=== PATIENT | female | born 1965 | race Caucasian/White ===

== ENCOUNTER 2017-08-07 18:49 | Emergency (ER) | payer OTHER, SELFPAY ==
[2017-08-07 18:50] VITALS: BP 146/80; PULSE 77; RESP 16; TEMP 36.7; O2SAT 100; BMI 21.6
--- NOTE | 2017-08-07 18:59 | RAD_ITS ---
STUDY: X-RAY - LUMBAR SPINE REASON FOR EXAM: Female, 51 years old. Fall. Low back pain. TECHNIQUE: 3 view(s) of the lumbar spine were obtained. COMPARISON: None FINDINGS: Normal lumbar lordosis. There is no substantial scoliosis. There is a normal alignment of the vertebrae. Normal vertebral bodies and endplates. There is mild intervertebral disc space narrowing at L3-4, L4-5 and to a lesser degree L5-S1. There is diffuse facet sclerosis. There are cholecystectomy clips. RAD/Lumbar Spine 2 or 3 Views IMPRESSION: Mild lumbar spondylosis. No acute pathology. Electronically Signed: Lito Damian MD at 19:23 EST , Service support ,
--- NOTE | 2017-08-07 19:00 | ED.VISSUMM ---
- ER Visit Summary Date of Service: 08/07/17 Chief Complaint: Back injury History of Present Illness: The patient is a 51 F with lumbar back injury. The patient was walking down her stairs. She states that they were wet from the rain and it had frozen. It was no ice. She states that she slipped and fell. She struck her low back and slid down the stairs. She did not hit her head. She denies loss of consciousness. Her only pain is at the area where she hit her back. It does not radiate down her legs. She denies any problems of bowel or bladder. She states she has never really had an injury like this before. The patient is otherwise healthy. Physical Examination: Afebrile, vitals unremarkable. Well-appearing female no acute distress. Head is normocephalic, atraumatic. Pupil's equal round reactive, extraocular muscles intact. Neck supple. Heart regular rate and rhythm. Lungs clear, chest nontender. Abdomen soft, nontender, nondistended. No pulsatile mass. Patient has paraspinal tenderness in the lumbar area, mild bony tenderness. There is a superficial abrasion over L2 and L3. Straight leg raise is negative bilaterally. 2+ symmetric lower extremity pulses. 2+ reflexes. No clonus. No weakness of dorsiflexion, plantar flexion, or extensor hallucis longus bilaterally. Test Results: X-ray shows no acute fracture Emergency Department Course and Treatment: The patient did have an abrasion with some mild tenderness over the L2-L3 area. She has normal lower extremity reflexes. She has normal pulses. She is a normal gait. I did obtain plain films which are unremarkable. The patient declined analgesics. She will continue anti-inflammatories at home. The patient will be discharged. Treatment Plan: [] Disposition: Discharge Impression: Lumbar contusion status post fall This note was generated with [employer] dictation software. It may contain incorrect words, spelling, and punctuation that were not noted in review of the chart prior to signing ED Disposition - Plan for ED Patient: Chief Complaint: Fall Instructions: ED Sprain Strain Lumbar Referrals: Melvin Aparicio MD [Primary Care Provider] -
--- NOTE | 2017-08-07 19:13 | NURSING ---
STILL NEEDS VERIFIED NO LW OR POA
--- NOTE | 2017-08-07 19:33 | ED.RN ---
THIS RN REVIEWED DISCHARGE INSTRUCTIONS WITH PT. PT TO FOLLOW UP WITH PCP NEEDED. PT VERBALIZES UNDERSTANDING AND IS AMBULATORY HOME BY SELF WITHOUT ASSISTANCE FROM STAFF.
== END 2017-08-07 19:34 | disposition home or self-care (01) ==
LOC: ED 19:17
PROVIDERS: Emergency Provider Emergency Medicine; Family Provider Internal Medicine; PCP Internal Medicine
DX: S30.0XXA Contusion of lower back and pelvis, initial encounter (principal); Z79.899 Other long term (current) drug therapy; W01.0XXA Fall on same level from slipping, tripping and stumbling without subsequent striking against object, initial encounter; Y93.01 Activity, walking, marching and hiking; Y92.008 Other place in unspecified non-institutional (private) residence as the place of occurrence of the external cause; Y99.8 Other external cause status
CPT/HCPCS: 72100; 99282

== ENCOUNTER → 2018-02-23 10:12 | Outpatient (CLI) | payer OTHER, SELFPAY ==
[2018-02-26 12:07] LABS: Almond <0.10 kU/L (Class 0); Apple <0.10 kU/L (Class 0); Banana 0.11 kU/L (Class 0/I); Barley, Whole Grain 0.11 kU/L (Class 0/I); Beef <0.10 kU/L (Class 0); Brazil Nut <0.10 kU/L (Class 0); Carrot <0.10 kU/L (Class 0); Cashew <0.10 kU/L (Class 0); Chicken <0.10 kU/L (Class 0); Clam <0.10 kU/L (Class 0); Codfish <0.10 kU/L (Class 0); Crab <0.10 kU/L (Class 0); Egg, White <0.10 kU/L (Class 0); Egg, Whole <0.10 kU/L (Class 0); Egg, Yolk <0.10 kU/L (Class 0); Garlic 0.11 kU/L (Class 0/I); Gluten <0.10 kU/L (Class 0); Hazelnut/Filbert <0.10 kU/L (Class 0); Lobster <0.10 kU/L (Class 0); Milk (Cow) <0.10 kU/L (Class 0); Oat <0.10 kU/L (Class 0); Onion 0.11 kU/L (Class 0/I); Orange <0.10 kU/L (Class 0); Pea <0.10 kU/L (Class 0); Pecan <0.10 kU/L (Class 0); Pork <0.10 kU/L (Class 0); Potato, White 0.11 kU/L (Class 0/I); SESAME SEED 0.14 kU/L (Class 0/I); Salmon <0.10 kU/L (Class 0); Shrimp <0.10 kU/L (Class 0); Soybean <0.10 kU/L (Class 0); Strawberry <0.10 kU/L (Class 0); Tomato 0.11 kU/L (Class 0/I); Tuna <0.10 kU/L (Class 0); Walnut, (Food) <0.10 kU/L (Class 0); Wheat 0.11 kU/L (Class 0/I); Yeast <0.10 kU/L (Class 0)
[2018-02-28 12:42] LABS: Turkey <0.10 kU/L (Class 0)
== END ==
PROVIDERS: Family Provider Internal Medicine; PCP Internal Medicine; Visit Provider Otolaryngology Otolaryngology/Facial Plastic Surgery
DX: T78.40XA Allergy, unspecified, initial encounter (principal)
CPT/HCPCS: 36415; 86003

== ENCOUNTER → 2019-04-04 | Outpatient (CLI) | payer OTHER, SELFPAY ==
[2019-04-04 13:10] LABS: Anion Gap 4 (5-15); BUN 21 mg/dL (7-18); BUN/Creat Ratio 30.5 RATIO (10-20); Chloride 105 mmol/L (98-107); Cholesterol 207 mg/dL (200); Creatinine, Serum 0.69 mg/dL (0.55-1.02); EST Glomerular Filtration Rate 95 mL/min (>60); Est Glom Filt Rate - Afr Amer 115 mL/min (>60); Glucose 78 mg/dL (74-106); High Density Lipoprotein 97 mg/dL; Potassium 3.8 mmol/L (3.5-5.1); Sodium Level 138 mmol/L (136-145); Thyroid Stim Hormone (TSH) 2.24 uIU/mL (0.358-3.74); Triglycerides 34 mg/dL; Very Low Density Lipoprotein 7 mg/dL (5-40)
== END | disposition home or self-care (01) ==
LOC: MFPLAB 10:38
PROVIDERS: Family Provider Family Medicine; PCP Family Medicine; Referring Provider Family Medicine; Visit Provider Family Medicine
DX: Z00.00 Encounter for general adult medical examination without abnormal findings (principal)
CPT/HCPCS: 36415; 80048; 80061; 82306; 84443

== ENCOUNTER → 2019-05-30 08:50 | Outpatient (CLI) | payer OTHER, SELFPAY ==
--- NOTE | 2019-05-30 08:58 | BD_ITS ---
STUDY: DUAL ENERGY X-RAY ABSORPTIOMETRY / DXA REASON FOR EXAM: Female, 53 years old. The patient is postmenopausal. No loss of height. TECHNIQUE: Bone Mineral Density (BMD) measurements of lumbar spine and bilateral hips were obtained. COMPARISON: None. FINDINGS: Lumbar Spine (L1-L4): g/cm2 (1.219) / T-score (0.3) / Z-score (0.9) Findings are suggestive of normal bone density with a low fracture risk. Left Femur Total: g/cm2 (0.834) / T-score (-1.4) / Z-score (-0.8) Left Femoral Neck: g/cm2 (0.791) / T-score (-1.8) / Z-score (-0.9) Right Femur Total: g/cm2 (0.858) / T-score (-1.2) / Z-score (-0.6) Right Femoral Neck: g/cm2 (0.763) / T-score (-2.0) / Z-score (-1.1) BD/Dexa Bone Density Study IMPRESSION: The patient is considered osteopenic as outlined below according to World Jose Organization (WHO) criteria with a moderate fracture risk. Reference Information: The T-score is the number of standard deviations above or below the standard which is normal for young adults at their peak bone mineral density. The World Health Organization (WHO) interprets the T-scores as follows: Above -1 Normal bone density Between -1 and -2.5 Osteopenia Equal to / or below -2.5 Osteoporosis As a practical clinical guideline, osteopenia may be graded as follows: Mild -1 through -1.5 Moderate -1.6 through -2.0 Severe -2.1 through -2.4 The Z-score is the number of standard deviations above or below age-matched controls. A Z-score of less than -1.5 would be considered abnormal. References: 1. NIH Osteoporosis and Related Bone Diseases http://www.osteo.org 2. International Society for Clinical Densitometry http://www.iscd.org 3. National Osteoporosis Foundation http://www.nof.org Electronically Signed: Alirio Boudreaux, at 12:44 EST , Service support ,
== END ==
PROVIDERS: Family Provider Family Medicine; PCP Family Medicine; Referring Provider Family Medicine; Visit Provider Family Medicine
DX: N95.9 Unspecified menopausal and perimenopausal disorder (principal)
CPT/HCPCS: 77080

== ENCOUNTER → 2019-08-31 17:06 | Outpatient (CLI) | payer OTHER, SELFPAY ==
--- NOTE | 2019-08-31 17:09 | RAD_ITS ---
STUDY: X-RAY - LEFT HAND, ATTENTION THUMB FINGER REASON FOR EXAM: Female, 53 years old. THUMB PAIN FOLLOWING HYPERTENSION TECHNIQUE: 3 view(s) of the finger were obtained. COMPARISON: None. FINDINGS: Normal metacarpal head. Normal metacarpophalangeal joint. Normal proximal phalanx. Normal middle phalanx. Normal distal phalanx. Normal proximal interphalangeal joint. Normal distal interphalangeal joint. RAD/Finger(s) Min 2 Views IMPRESSION: Normal x-ray examination of the finger. Electronically Signed: Dimitri Titus MD at 21:45 EST , Service support ,
== END ==
PROVIDERS: PCP Family Medicine; Referring Provider Family Medicine; Visit Provider Family Medicine
DX: M25.549 Pain in joints of unspecified hand (principal)
CPT/HCPCS: 73140

== ENCOUNTER → 2019-11-27 15:20 | Outpatient (CLI) | payer OTHER, SELFPAY ==
--- NOTE | 2019-11-27 15:25 | RAD_ITS ---
STUDY: X-RAY - CERVICAL SPINE REASON FOR EXAM: Female, 54 years old. Neck pain TECHNIQUE: 5 view(s) of the cervical spine were obtained. COMPARISON: None FINDINGS: Normal anterior atlantoaxial articulation. Normal odontoid process. There is anatomic alignment from C1 to C4. There is 3 mm of posterior subluxation of C5 on C4 likely chronic. C5-T1 align anatomically. There is bilateral foraminal narrowing at C5-6. Normal vertebral bodies and endplates. Mild disc space narrowing in the mid C-spine. Bilateral foraminal narrowing noted C4-5 and C5-6. The soft tissue structures are unremarkable. RAD/Cerv Spine 4 or 5 Views IMPRESSION: Multilevel degenerative changes, no acute findings Electronically Signed: Justus Doyle MD at 15:41 EDT , Service support ,
== END ==
PROVIDERS: PCP Family Medicine; Referring Provider Family Medicine; Visit Provider Family Medicine
DX: M54.2 Cervicalgia (principal)
CPT/HCPCS: 72050

== ENCOUNTER 2020-03-20 15:30 | Outpatient (RCR) | payer OTHER, SELFPAY ==
--- NOTE | 2019-12-01 09:57 | HP.PTEVAL ---
Patient's Visit Information JOSEF MACHADO is a 54 year old F referred to Physical Therapy by Dr. Jimmie Palacios MD with a diagnosis of NECK PAIN. Date of Evaluation: 12/01/19 Physical Therapist: Libby Vera PT, Cert MDT - Visit Plan Frequency: 2-3x /Week Duration: 4-6 Weeks Plan: POSTURE CORRECTION/STRENGTHENING, INSTRUCTION IN APPROPRIATE BODY MECHANICS AND ACTIVITY MODIFICATIONS. ERIBERTO UE ROM, STRETCHING AND STRENGTHENING. HEP INSTRUCTION. CONSIDER: REP RET IN SITTING. REP RET IN LYING. SCAP SQUEEZES. DEEP NECK FLEXOR LIFT. PRONE W'S. UE WALL SLIDES. PRONE ROWS. UE TBAND WALL WALKS. ANTERIOR/MIDDLE SCALENE STRETCH. UPPER TRAP STRETCH. LEVATOR SCAPULAE STRETCH. CHEST/PEC MAJOR AND MINOR STRETCH - Subjective Diagnosis: NECK PAIN. 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 HAS A STANDING DESK NOW AT WORK BUT CURRENTLY WORKING DUE TO THE VIRUS. Disability: NO. Present symptoms: ERIBERTO NECK PAIN, PAIN BETWEEN SHOULDER BLADES, A LOT OF TIGHTNESS. RIGHT UPPER ARM CRAMPING. SOMETIMES WAKES UP WITH RIGHT HAND NUMB. Present since: ABOUT 10 YEARS AGO BUT OFF AND ON IN SEVERITY AT LEAST. Pain Scale: Worst - 5/10 Least - 0/10. Currently: 10: WORSENING. LOCKS DOWN NOW. HAS BEEN LOCKED FOR ABOUT A YEAR. Commenced as a result of: NO APPARENT REASON. Symptoms at onset: NECK STIFFNESS. Worse: STRESS, WORKING ON COMPUTER, TYPING, GARDENING, MORNING, REACHING, BENDING AND LOOKING DOWN. Better: REST, ICE, HEAT, IBUPROFEN, MINDFUL OF POSTURE. Disturbed sleep: YES. Previous history/Previous treatment: NO NECK SURGERY, NO YASMINE'S. DOES HAVE A HISTORY OR CHIROPRACTIC NECK ADJUSTMENTS FOR 4-5 YEARS. PT ABOUT 10 YEARS AGO BECAUSE ALL LOCKED UP. MASSAGE THERAPY INTERMITTENTLY. ACUPUNCTURE. This episode: MOBIC. STILL SEEING THE CHIROPRACTOR. HELPS BUT DOESN'T GET RID OF THE TRIGGER POINTS AND TIGHTNESS. IT HELPS WITH ROM. BY THE NEXT DAY ALMOST BACK TO SQUARE ONE. Dizziness: NO. Tinnitis: NO. Nausea: NO. Shortness of Breath: NO. Difficulty Swollowing: NO. Gait: NORMAL. Accidents: NO. Unexplained weight loss: NO. Imaging: RECENT NECK X-RAY - FINDINGS: Normal anterior atlantoaxial articulation. Normal odontoid process. There is anatomic alignment from C1 to C4. There is 3 mm of posterior. subluxation of C5 on C4 likely chronic. C5-T1 align anatomically. There is bilateral foraminal narrowing at C5-6. Normal vertebral bodies. and endplates. Mild disc space narrowing in the mid C-spine. Bilateral. foraminal narrowing noted C4-5 and C5-6. The soft tissue structures are unremarkable. RAD/Cerv Spine 4 or 5 Views. IMPRESSION: Multilevel degenerative changes, no acute findings. PMH/Recent major surgery: UNREMARKABLE - Objective Sitting Posture/Standing Posture: FAIR BUT TENDS TO HYPER EXTEND LUMBAR SPINE. Active Correction of posture: WORSE. Other Observations: INDEP GAIT AND TRANSFERS. 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 ERIBERTO UE STRENGTH 5/5 WITH MMT'ING. Sensory deficit: ERIBERTO UE LIGHT TOUCH SENSATION APPEARS INTACT AND SYMMETRICAL. ROM deficit: ERIBERTO UE'S WFL. Reflexes: 2/3 ERIBERTO UE'S. Dural Signs: NEGATIVE ERIBERTO UE'S. Cervical Mvmt Loss: Flex: MIN. Pro: NIL. Ext: MILD TO MO. Ret: MOD. RSB: MOD. LSB: MOD. R Rot: MILD. L Rot: MILD. Postural strength: FAIR. Palpation: NO ACUTE TENDERNESS IN UPPER THORACIC OR NECK REGIONS BUT MUSCULAR TIGHTNESS IS FELT. TREATMENT: NEUROMUSCULAR REEDUCATION - RETRAINING OF MVMT AND POSTURE FOR SITTING, LYING AND STANDING ACTIVITIES. OTHER: SEATED CERVICAL DISTRACTION TESTING RESULTS IN DECREASED C/O PAIN/TIGHTNESS. - Goals Goal 1:: DECREASE C/O NECK AND UE SX'S. Goal Time Frame: 4-6 Weeks Goal 2:: IMPROVE PERSONAL CARE, LIFTING, READING, SLEEP, WORK, DRIVING AND RECREATIONAL FUNCTION Goal Time Frame: 4-6 Weeks Goal 3:: INSTRUCT IN PROPHYLAXIS Goal Time Frame: 4-6 Weeks - Rehabilitation Potential Rehabilitation Potential: Fair - Anticipated Interventions Patient/Client Instruction: Educate patient on: Condition, Plan of Care, Risk Factors, Benefits of Fitness Program For the Purpose of:: To improve self management Therapeutic Exercise to Include: Strength training, Endurance training, Body mechanics, Postural training, Flexibilty training, Neuromotor development, Active ROM, Scapular Strength/Stabilization For the Purpose of:: To decrease pain, To increase ROM, To improve muscle performance and motor function, To increase tolerance to activity/condition/position, To improve ability of physical actions for home/community/work/leisure TENS: Yes IF ES: Yes Cryotherapy (ice pack, ice massage): Yes Thermo therapy (hot pack): Yes Ultrasound (thermal/non thermal): Yes For the Purpose of:: To decrease pain, To increase ROM, To improve nutrient delivery to tissue Thank you for the opportunity to evaluate your patient. For Medicare and Medicare HMO plans, please review the plan of care and approve it. It will need to be FAXED BACK to us at [phone] for Medicare purposes. For Medicare only, by signing this I certify the plan of care. Please let me know if there are questions or concerns regarding this plan of care. Physician Signature: Date:
--- NOTE | 2020-04-29 17:32 | HP.PTDCNRP_ITS ---
JOSEF MACHADO was seen in my office for initial evaluation on 12/01/19. The following Plan of Care was established for this patient: Initial Frequency: 2-3x /Week Initial Duration: 4-6 Weeks Patient/Client Instruction: Educate patient on: Condition, Plan of Care, Risk Factors, Benefits of Fitness Program For the Purpose of:: To improve self management Therapeutic Exercise to Include: Strength training, Endurance training, Body mechanics, Postural training, Flexibilty training, Neuromotor development, Active ROM, Scapular Strength/Stabilization For the Purpose of:: To decrease pain, To increase ROM, To improve muscle pe rformance and motor function, To increase tolerance to activity/condition/position, To improve ability of physical actions for home/community/work/leisure TENS: Yes IF ES: Yes Cryotherapy (ice pack, ice massage): Yes Thermo therapy (hot pack): Yes Ultrasound (thermal/non thermal): Yes For the Purpose of:: To decrease pain, To increase ROM, To improve nutrient delivery to tissue This patient was last seen in our office 03/20/20. Pertinent comments regarding their Physical therapy will appear below: This patient has not returned to Physical Therapy and is appropriate to return to MD for further follow-up as needed. At this point I will be discontinuing this patient from physical therapy. I would be happy to see this patient again in the future if found appropriate by the physician. Thank you! Libby Vera, PT, Cert MDT
== END 2020-03-20 19:00 | disposition home or self-care (01) ==
LOC: PT 15:30
PROVIDERS: PCP Family Medicine; Referring Provider Family Medicine; Visit Provider Family Medicine
DX: M54.2 Cervicalgia (principal); M25.511 Pain in right shoulder
CPT/HCPCS: 97012; 97014; 97035; 97110; 97112; 97116; 97140; 97162; 97530; G0283

== ENCOUNTER → 2020-05-14 16:45 | Outpatient (CLI) | payer OTHER, SELFPAY | PROVIDERS: PCP Family Medicine; Referring Provider Family Medicine; Visit Provider Family Medicine | DX: Z20.828 Contact with and (suspected) exposure to other viral communicable diseases (principal) | CPT/HCPCS: 87635; U0003 ==

== ENCOUNTER 2020-09-10 15:09 | Outpatient (RCR) | payer OTHER, SELFPAY ==
[2020-09-10] MEDS: COVID-19 VACC, MRNA(PFIZER)/PF 30 MCG/0.3 ML SYRINGE IM (12:41)
[2020-10-01] MEDS: COVID-19 VACC, MRNA(PFIZER)/PF 30 MCG/0.3 ML SYRINGE IM (12:33)
== END 2020-12-03 23:59 ==
LOC: IMMUN 15:09
PROVIDERS: PCP Family Medicine; Visit Provider Family Medicine
DX: Z23 Encounter for immunization (principal)
CPT/HCPCS: 0001A; 0002A; 91300

== ENCOUNTER 2021-09-04 15:12 | Outpatient (CLI) | payer OTHER, SELFPAY ==
[2021-09-04 18:27] LABS: ALB/GLOB Ratio 1.3 RATIO (0.9-2.4); AST(SGOT) 23 U/L (15-37); Alanine Aminotransfer ALT/SGPT 26 U/L (13-56); Albumin, Serum 4.1 g/dL (3.2-5.0); Alkaline Phosphatase 110 U/L (45-117); Anion Gap 4 (5-15); BUN 17 mg/dL (7-18); Calcium,Total 8.7 mg/dL (8.5-10.1); Chloride 99 mmol/L (98-107); Creatinine, Serum 0.89 mg/dL (0.55-1.02); EST Glomerular Filtration Rate 70 mL/min (>60); Est Glom Filt Rate - Afr Amer 84 mL/min (>60); Globulin 3.2 g/dL (2.2-4.2); Glucose 96 mg/dL (74-106); Potassium 4.1 mmol/L (3.5-5.1); Protein, Total 7.3 g/dL (6.4-8.2); Sodium Level 134 mmol/L (136-145)
== END 2021-09-04 23:59 | disposition home or self-care (01) ==
PROVIDERS: PCP Family Medicine; Referring Provider Family Medicine; Visit Provider Family Medicine
DX: Z00.00 Encounter for general adult medical examination without abnormal findings (principal)
CPT/HCPCS: 36415; 80053

== ENCOUNTER 2021-09-11 16:00 | Outpatient (RCR) | payer OTHER, SELFPAY ==
--- NOTE | 2021-07-04 10:59 | HP.PTEVAL_ITS ---
Patient's Visit Information JOSEF MACHADO is a 55 year old F referred to Physical Therapy by Dr. Jimmie Palacios MD with a diagnosis of BILATERAL SHOULDER PAIN. Date of Evaluation: 07/04/21 Physical Therapist: Molina Laird PT, Cert MDT, OCS - Visit Plan Frequency: 2x /Week Duration: 4 Weeks Plan: PT INTERVENTIONS WITH POSTURAL EX'S ,RTC/SCAPULAR STRENGTHENING ,POSTURAL ED AND MODALTIES - Subjective This 55 y/o female presents to physical therapy with shoulder pain bilateral pain. Patient has had shoulder pain several months related to posture and weakness. Seen DR recommended PT. No diagnostics. Location of pain global shoulders refers to lateral deltoid to elbow. Aggravating posture ,lifting and OH activities. Alleviating factors trying to all stretches. Patient sleeping good. Denies paresthesia/ tingling. Patient symptoms affects ADL's and housework tasks along with job demands at [employer]. Patient symptoms described as sharp , dull ache. Patients symptoms affects QOL. 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 SOCIAL: - Pain Bilateral Shoulder Pain Intensity (Out of 10): 3 Pain Intensity Range: 10 Comment: RIGHT > LEFT - Objective POSTURE: rounded shoulders head forward. PALAPTION: unremarkable. NEURO: denies paresthesia/tingling. PALAPTION: tender AC right ,levator scapular. AROM SHOULDERS: flexion/abduction 170 degrees, ER > 90,IR T11. MMT: infraspinatous 4-/5 pain right, supraspinatous 4-/5 pain right, subscapularis 4/5,deltoid 3+/5 right ,left 4-/5 pain right. middle traps 3+/5 - Special Tests C/S Radiculapathy - Left Upper limb tension test: Negative C/S Radiculapathy - Right Upper limb tension test: Negative C/S Radiculapathy - Right Spurlings: Negative Sharp Alannah: Negative Vertebral Artery Test: Negative Alar Ligament Test: Negative R Shoulder External Rotation Lag Test - RC Tear: Negative R Shoulder Supine Impingement Test - RC Tear: Negative R Shoulder Empty Can - SS: Positive R Shoulder Belly Press - SupScap: Negative R Shoulder Neer - Impingement: Positive R Shoulder Orlando Ricardo - Impingement: Positive L Shoulder External Rotation Lag Test - RC Tear: Negative L Shoulder Supine Impingement Test - RC Tear: Negative L Shoulder Empty Can - SS: Positive L Shoulder Belly Press - SupScap: Negative L Shoulder Neer - Impingement: Positive L Shoulder Orlando Ricardo - Impingement: Positive - Balance/Special Test Scores Quick DASH Score: 38.6350 - Goals Goal 1:: Patient to be I with HEP for shoulder pain Goal Time Frame: 4-6 Weeks Goal 2:: Patient to improve posture for job demands 90m % of the time Goal Time Frame: 4-6 Weeks Goal 3:: Patient demonstrate 50 % improvement with decrease symptoms to improve function with job and housework tasks Goal Time Frame: 4-6 Weeks Goal 4:: Patient to improve strength of RTC and deltoid to 4/5 to improve activities with job and home with less pain Goal Time Frame: 4-6 Weeks Goal 5:: Patient to improve quick dash by 5 points to improve QOL and function Goal Time Frame: 4-6 Weeks - Rehabilitation Potential Physical Therapy Diagnosis: This patient has shoulder pain with weakness of RTC and postural muscle worse on right with pain along with instability thus benefit from skilled PT . Rehabilitation Potential: Poor - Anticipated Interventions Patient/Client Instruction: Educate patient on: Condition, Plan of Care For the Purpose of:: To decrease pain, To increase ROM, To improve muscle performance and motor function, To improve ability to perform ADL's, To increase tolerance to activity/condition/position, To improve ability of physical actions for home/community/work/leisure, To improve health of tissue, To decrease soft tissue restriction, To increase flexibility/ROM Therapeutic Exercise to Include: Strength training, Postural training, Scapular Strength/Stabilization Comment: RTC For the Purpose of:: To decrease pain, To increase ROM, To improve muscle performance and motor function, To improve ability to perform ADL's, To improve performance and independence with ADL's, To improve ability of physical actions for home/community/work/leisure, To reduce risk of recurrence, To prevent re- injury TENS: Yes IF ES: Yes Cryotherapy (ice pack, ice massage): Yes Thermo therapy (hot pack): Yes Ultrasound (thermal/non thermal): Yes For the Purpose of:: To decrease pain, To increase ROM, To improve nutrient delivery to tissue, To increase oxygenation perfusion, To improve health of tissue, To decrease soft tissue restriction Thank you for the opportunity to evaluate your patient. For Medicare and Medicare HMO plans, please review the plan of care and approve it. It will need to be FAXED BACK to us at [phone] for Medicare purposes. For Medicare only, by signing this I certify the plan of care. Please let me know if there are questions or concerns regarding this plan of care. Physician Signature: Date:
--- NOTE | 2021-12-24 13:49 | HP.PTDCNRP_ITS ---
JOSEF MACHADO was seen in my office for initial evaluation on 07/04/21. The following Plan of Care was established for this patient: Initial Frequency: 2x /Week Initial Duration: 4 Weeks Patient/Client Instruction: Educate patient on: Condition, Plan of Care For the Purpose of:: To decrease pain, To increase ROM, To improve muscle performance and motor function, To improve ability to perform ADL's, To increase tolerance to activity/condition/position, To improve ability of physical actions for home/community/work/leisure, To improve health of tissue, To decrease soft tissue restriction, To increase flexibility/ROM Therapeutic Exercise to Include: Strength training, Postural training, Scapular Strength/Stabilization For the Purpose of:: To decrease pain, To increase ROM, To improve muscle performance and motor function, To improve ability to perform ADL's, To improve performance and independence with ADL's, To improve ability of physical actions for home/community/work/leisure, To reduce risk of recurrence, To prevent re- injury TENS: Yes IF ES: Yes Cryotherapy (ice pack, ice massage): Yes Thermo therapy (hot pack): Yes Ultrasound (thermal/non thermal): Yes For the Purpose of:: To decrease pain, To increase ROM, To improve nutrient delivery to tissue, To increase oxygenation perfusion, To improve health of tissue, To decrease soft tissue restriction This patient was last seen in our office . Pertinent comments regarding their Physical therapy will appear below: Patient seen for bilateral shoulder pain and elbow pain for strengthening, postural ex's and modalities thus d/c to HEP At this point I will be discontinuing this patient from physical therapy. I would be happy to see this patient again in the future if found appropriate by the physician. Thank you! Molina Laird, PT, Cert MDT, OCS Balance/Gait/Functional tests - Balance/Special Test Scores Quick DASH Score: 4.5450
== END 2021-09-11 19:00 | disposition home or self-care (01) ==
LOC: PT 16:00
PROVIDERS: PCP Family Medicine; Referring Provider Family Medicine; Visit Provider Family Medicine
DX: M25.511 Pain in right shoulder (principal); M25.512 Pain in left shoulder
CPT/HCPCS: 97014; 97110; 97162; 97530; G0283

== ENCOUNTER 2021-09-16 17:49 | Outpatient (CLI) | payer OTHER, SELFPAY ==
--- NOTE | 2021-09-16 18:20 | MRI_ITS ---
STUDY: MRI RIGHT WRIST WITHOUT CONTRAST REASON FOR EXAM: Pain at the dorsal ulnar aspect of the right wrist after right wrist sprain 06/10/2021. TECHNIQUE: Standardized fat and water weighted pulse sequences were obtained in all 3 orthogonal planes. COMPARISON: None. FINDINGS: Normal visualized distal radius and ulna. There is a small effusion of the distal radioulnar joint (inversion recovery axial images 21-23). There is a very small partial tear of the proximal surface of the triangular fibrocartilage (gradient coronal images 19-21; inversion recovery coronal image 9). There are small intraosseous cysts in the capitate (gradient coronal image 20). Otherwise, unremarkable carpal bones. Normal radiocarpal, intercarpal and midcarpal articulations. Normal pisotriquetral articulation. Normal visualized interosseous scapholunate ligament. Normal extensor tendons. Normal flexor tendons. Normal carpal tunnel with a normal median nerve. Normal carpometacarpal articulation of the thumb. Normal second through fifth carpometacarpal articulations. Normal visualized metacarpal bones. There is no demonstrated soft tissue abnormality. MRI/Upper Ext Joint Only(Routine) IMPRESSION: Very small partial tear of the triangular fibrocartilage. Small effusion of the distal radioulnar joint. Electronically Signed: Erick Nion MD at 10:13 EDT ,
== END 2021-09-16 23:59 | disposition home or self-care (01) ==
LOC: MRI 17:50
PROVIDERS: PCP Family Medicine; Visit Provider Family Medicine
DX: S63.501A Unspecified sprain of right wrist, initial encounter (principal)
CPT/HCPCS: 73221

== ENCOUNTER → 2022-05-08 | Outpatient (CLI) | payer OTHER, SELFPAY ==
--- NOTE | 2022-05-08 16:29 | RAD_ITS ---
HISTORY: Hematuria. TECHNIQUE: XR Abdomen W/ Decub and/or Erect Views. COMPARISON: None. FINDINGS: BOWEL GAS PATTERN: Gaseous distention of bowel in the left upper quadrant. Moderate stool throughout the colon. FREE AIR: None seen on upright view. CALCIFICATIONS: Small nonspecific calcifications in the upper abdomen again seen. Pelvic phlebolith also noted. BONES: Unremarkable. SOFT TISSUES: Lung bases clear. RAD/Abd Inc Decub and/or Erect IMPRESSION: Nonspecific bowel gas pattern. Gaseous distention of bowel in the left upper quadrant with moderate stool throughout the colon. Electronically Signed: Aranza Kelly MD at 8:17 EST ,
== END | disposition home or self-care (01) ==
LOC: MTRAD 16:28
PROVIDERS: PCP Family Medicine; Referring Provider Family Medicine; Visit Provider Family Medicine
DX: R31.9 Hematuria, unspecified (principal)
CPT/HCPCS: 74019; 87086; 87088

== ENCOUNTER 2022-08-24 13:00 | Outpatient (RCR) | payer OTHER, SELFPAY ==
--- NOTE | 2022-07-21 12:56 | HP.PTEVAL ---
Patient's Visit Information JOSEF MACHADO is a 56 year old F referred to Physical Therapy by Dr. Jimmie Palacios MD with a diagnosis of LBP/R HIP PAIN. 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 PLEASE PROVIDE WRITTEN HEP. POSTURE CORRECTION/STRENGTHENING, INSTRUCTION IN APPROPRIATE BODY MECHANICS AND ACTIVITY MODIFICATIONS. DLS STARTING WITH A NEUTRAL SPINE PROGRESSING ROM TOLERATED. ERIBERTO LE ROM, STRETCHING AND STRENGTHENING. HEP INSTRUCTION. 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 SOMETIMES FIELD WORK INCLUDING BENDING, SQUATTING, PUSHING AND PULLING BUT NOT HEAVY LIFTING. Present symptoms: DEEP FRONT HIP PAIN. ERIBERTO LOW BACK PAIN. ACTUALLY REPORTS TIGHTNESS IN WHOLE TRUCK AREA AND UP BACK INTO NECK AND SHLDS. Present since: CHRONIC BUT HAS PROGRESSIVELY WORSENED OVER ABOUT A YEAR AGO. Pain Scale: WORST 4, LEAST 0/10. Currently: 0/10. Is it getting better, worse or staying the same: UNCHANGING. Commenced as a result of: IBS BUT ALSO REPETATIVE UP AND DOWN IN DECEMBER SEEMED TO CREATE TRIGGER POINTS IN FRONT OF R HIP. Worse: WALKING > 3 MILES, WALKING ON UNEVEN GROUND, HIKING UP AND DOWN HILLS, HEAVY GARDENING, MOVING MULCH, DIGGING,. Better: RUBBER BALL TRIGGER POINT RELEASE, STRETCHING/YOGA, HEAT. Disturbed sleep: YES - AT TIMES. Previous history/Previous treatment: MASSAGE. CHIROPRACTIC 1-2 TIMES A MONTH - ONGOING. ACCUNCTURE. NO SPINE SX. NO HIP SURGERY. NO HIP OR BACK INJECTIONS. NO ORTHO CONSULTS FOR HIPS. NO JEWEL FLAT SURFACER CONSULTS. Treatment this episode: NONE. Coughing/sneezing/straining: NEGATIVE. Gait: TIME AND DISTANCE LIMITED DUE TO BACK/HIP PAIN. Bowel or Bladder Dysfunction: NO. Accidents: NO. Unexplained weight loss: NO. Imaging: NONE RECENT. PMH/Recent major surgery: FOOT PROBLEMS, IBS, ANXIETY - ON MEDICATION. R WRIST STRAIN - WEARING R WRIST BRACE TODAY. - Objective Sitting/Standing Posture: MILD FH AND RSH'S. MILD REDUCED LUMBAR LORDOSIS AND NO RELEVANT LATERAL SHIFT. Active Correction of posture: BETTER. Other Observations: INDEP GAIT AND TRANSFERS WITH NO GROSS DEVIATIONS NOTED. Sensory deficit: ERIBERTO LE LIGHT TOUCH SENSATION GROSSLY INTACT AND SYMMETRICAL. ROM deficit: ERIBERTO LE'S WFL WITH MILD R HIP IR AND ER TIGHTNESS COMPARED TO LEFT. Motor deficit: ERIBERTO LE'S 5/5 WITH MMT'ING. Dural Signs: NEGATIVE ERIBERTO LE'S. Lumbar mvmt loss: flex - NIL. ext - MIN. R SG - MIN TO MOD. L SG - MIN TO MOD. Core strength: FAIR. Palpation: NO ACUTE LOWER THORACIC, PELVIC OR HIP TENDERNESS WITH MEDIUM TO LIGHT PALPATION. TREATMENT: NEUROMUSCULAR REEDUCATION - RETRAINING OF MVMT AND POSTURE FOR SITTING, LYING AND STANDING ACTIVITIES. - Balance/Special Test Scores Oswestry Low Back Score: 5 - Goals Goal 1:: DECREASE C/O LOW BACK AND RIGHT HIP PAIN. Goal Time Frame: 4-6 Weeks Goal 2:: IMPROVE SITTING, WORK AND RECREATIONAL FUNCTION. Goal Time Frame: 4-6 Weeks Goal 3:: INSTRUCT IN PROPHYLAXIS Goal Time Frame: 4-6 Weeks - Anticipated Interventions Patient/Client Instruction: Educate patient on: Condition, Plan of Care, Risk Factors For the Purpose of:: To improve self management Therapeutic Exercise to Include: Strength training, Body mechanics, Postural training, Flexibilty training, Neuromotor development, Dynamic Lumbar Stabilization For the Purpose of:: To decrease pain, To increase ROM, To improve muscle performance and motor function, To increase tolerance to activity/condition/position, To improve ability of physical actions for home/community/work/leisure Thank you for the opportunity to evaluate your patient. For Medicare and Medicare HMO plans, please review the plan of care and approve it. It will need to be FAXED BACK to us at [phone] for Medicare purposes. For Medicare only, by signing this I certify the plan of care. Please let me know if there are questions or concerns regarding this plan of care. Physician Signature: Date:
--- NOTE | 2022-08-24 13:24 | HP.PTDCSUM_ITS ---
It has been my pleasure to treat JOSEF MACHADO referred by Dr. Jimmie Palacios MD, with the diagnosis of LBP/R HIP PAIN for a total of 8 visit(s). Discharge Date: 08/24/22 Please see the following information for a summary of their discharge status. Subjective: PATIENT REPORTS HER CORE IS STRONGER SO SHE FEELS LESS INSTABILITY AND LESS PAIN. I CAN BE MORE ACTIVE. SHE REPORTS SHE HAS BEEN ABLE TO MODIFY HER WORK STATION TO TOLERATE WORK BETTER. SHE STATES SHE STILL HAS TIGHTNESS IN HER TRUNK/HIPS. MASSAGE THROUGH CHIROPRACTOR LAST WEEK BUT REALLY WASN'T WHAT SHE HOPED TO GET. LOW BACK Pain Intensity (Out of 10): 0 ERIBERTO HIP PAIN Pain Intensity (Out of 10): 0 % Improvement: 65 Objective/Function: Communicates good understanding of home exercise program instructions. Compliant with home exercises on nearly daily basis. Goal 1:: DECREASE C/O LOW BACK AND RIGHT HIP PAIN. Goal Progress: Goal Met Goal 2:: IMPROVE SITTING, WORK AND RECREATIONAL FUNCTION. Goal Progress: Goal Met Goal 3:: INSTRUCT IN PROPHYLAXIS Goal Progress: Goal Met Plan: PATIENT WAS SEEN TODAY FOR RE-ASSESSMENT OF PROGRESS TOWARD THE SET PT GOALS AND THE NEED FOR FURTHER PHYSICAL THERAPY VS READINESS FOR DISCHARGE. PATIENT IS APPROPRIATE FOR DISCHARGE TO [facility]. REVIEWED HEP AND REINFORCED IMPORTANCE OF STRENGTH/STABILITY EX'S. DISCUSSED DRY NEEDLING AND PATIENT IS FAMILAR WITH EPISODE OF CARE FOR DRY NEEDLING FOR SHLD IN THE PAST. ALSO DISCUSSED POSSIBLE BENEFITS OF HOME TENS UNIT - PATIENT IS FAMILAR WITH E-STIM FROM CHIROPRACTIC TREATMENTS. PATIENT IS AGREEABLE TO DISCHARGE. UPON EXAM TODAY: Lumbar mvmt loss: flex - NIL. ext - MIN. R SG - MIN TO MOD. L SG - MIN TO MOD. PATIENT DENIES INCREASED PAIN WITH LUMBAR ROM TESTING ALL PLANES BUT DOES REPORT TIGHTNESS. ALTHOUGH PATIENT CONTINUES TO HAVE DECREASED LUMBAR ROM ALL GOALS APPEAR TO HAVE SHAILESH MET. If there are questions or concerns regarding this patient's physical therapy, please feel free to call me at [phone]. Thank you for the referral of this patient. Sincerely, Libby Vera, PT, Cert MDT Balance/Gait/Functional tests - Balance/Special Test Scores Oswestry Low Back Score: 4
== END 2022-08-24 19:00 | disposition home or self-care (01) ==
LOC: PT 13:00
PROVIDERS: PCP Family Medicine; Referring Provider Family Medicine; Visit Provider Family Medicine
DX: M54.50 Low back pain, unspecified (principal); M25.551 Pain in right hip
CPT/HCPCS: 97110; 97112; 97162; 97164; 97530

== ENCOUNTER → 2023-06-14 | Outpatient (CLI) | payer OTHER, SELFPAY ==
[2023-06-14 15:20] LABS: Absolute Lymphocyte Count 1.64 X10^3/uL (0.83-4.51); Absolute Neutrophil Count 3.7 X10^3/uL (2.0-7.7); Basophil# 0.02 X10^3/uL; Basophil% 0.3 % (0-1); Eosinophil# 0.02 X10^3/uL; Eosinophils% 0.3 % (0-5); Hematocrit 36.1 % (37-47); Lymphocyte # 1.64 X10^3/ul (0.83-4.51); Mean Corp Hgb Conc 33.2 g/dL (32-36); Mean Corpuscular Hgb 32.2 pg (27.0-32.0); Mean Corpuscular Volume 96.8 fL (81-99); Monocyte# 0.49 X10^3/uL; Monocyte% 8.4 % (0-10); NRBC Flagged by Analyzer 0 % (0-5); Neutrophil # 3.67 X10^3/uL (2.7-7.7); Neutrophil % 62.7 % (47-70); Platelet Count 287 K/mm3 (150-450); RBC Distribution Width CV 11.6 % (11.6-14.6); RBC Distribution Width SD 41.1 fl (35.1-43.9); Red Blood Count 3.73 M/mm3 (4.2-5.4); White Blood Count 5.9 K/mm3 (4.4-11.0)
[2023-06-14 16:35] LABS: ALB/GLOB Ratio 1.2 RATIO (0.9-2.4); AST(SGOT) 22 U/L (15-37); Alanine Aminotransfer ALT/SGPT 23 U/L (13-56); Alkaline Phosphatase 80 U/L (45-117); Anion Gap 6 (5-15); BUN 12 mg/dL (7-18); BUN/Creat Ratio 17.2 RATIO (10-20); Calcium,Total 8.9 mg/dL (8.5-10.1); Chloride 98 mmol/L (98-107); EST Glomerular Filtration Rate 92 mL/min (>60); Est Glom Filt Rate - Afr Amer 112 mL/min (>60); Globulin 3.4 g/dL (2.2-4.2); Glucose 98 mg/dL (74-106); Magnesium 2.2 mg/dL (1.6-2.6); Potassium 4.4 mmol/L (3.5-5.1); Protein, Total 7.4 g/dL (6.4-8.2); Sodium Level 134 mmol/L (136-145)
== END | disposition home or self-care (01) ==
LOC: MFPLAB 12:29
PROVIDERS: PCP Family Medicine; Visit Provider Family Medicine
DX: R19.7 Diarrhea, unspecified (principal)
CPT/HCPCS: 36415; 80053; 83735; 85025

== ENCOUNTER → 2023-06-29 | Outpatient (CLI) | payer OTHER, SELFPAY ==
--- OUTSIDE RECORDS SUMMARY | 2023-06-29 16:01 | XMS RPT_ITS | CCD ---
Author Name Unknown Address [address] [place] [address] Organization [facility] Care Team Providers Care Machinery Erector Name Role Phone Markus DE LEON, Melvin Arteaga Primary Care Provider [phone] MELVIN LYNN Primary Care Unavailable DUYEN GUTIERREZ Attending Unavailable SELF, SELF Referring Unavailable MELVIN LYNN Primary Care Unavailable DUYEN GUTIERREZ Attending Unavailable Markus DE LEON, Melvin Arteaga Primary Care Provider [phone] NINI HARKINS Referring Unavail able MELVIN LYNN Primary Care Unavailable NINI HARKINS Referring Unavail able NINI HARKINS Attending Unavail able MELVIN LYNN Primary Care Unavailable MARLENI VIZCAINO Attending Unavailable MELVIN LYNN Primary Care Unavailable MELVIN LYNN Primary Care Unavailable SANDY VALDEZ Attending Unavailable MELVIN LYNN Primary Care Unavailable MELVIN LYNN Primary Care Unavailable Allergies Allergy Classification Reported Allergen(s) Allergy Type Date of Onset Reaction(s) Facility (20 sources) almond allergenic extract; Translations: [ALMOND] Drug Allergy 12-10-19 10 [facility] (20 sources) carrot allergenic extract; Translations: [CARROT] Drug Allergy 12-10-19 10 [facility] (20 sources) [place] silk preparation; Translations: [CORN] Drug Allergy 05-29-20 08 Intolerance [facility] Work Phone: (20 sources) cyclobenzaprine; Translations: [CYCLOBENZAPRINE HCL] Drug Allergy 05-31-20 09 [facility] (20 sources) DULoxetine; Translations: [DULOXETINE] Drug Allergy 08-23-19 13 Mental Status Change [facility] Work Phone: [phone] (20 sources) Garlic preparation; Translations: [GARLIC] Drug Allergy 12-10-19 10 [facility] (20 sources) Mold Extract; Translations: [MOLD] Drug Allergy 03-04-20 05 [facility] Work Phone: [phone] (20 sources) peanut; Translations: [PEANUTS] Propensity to adverse reactions 12-10-19 10 [facility] (20 sources) potato allergenic extract; Translations: [POTATO] Drug Allergy 12-10-19 10 [facility] (20 sources) Sertraline; Translations: [SERTRALINE HCL] Drug Allergy 05-25-20 12 Rash [facility] Work Phone: [phone] (20 sources) Sulfamethoxazole / Trimethoprim; Translations: [SULFAMETHOXAZOLE-TR IMETHOPRIM] Drug Allergy 07-13-19 06 [facility] Work Phone: (20 sources) Tree; Translations: [TREES] Propensity to adverse reactions 03-04-20 05 [facility] Work Phone: (20 sources) Wheat, Wheat Germ; Translations: [WHEAT, WHEAT GERM] Propensity to adverse reactions 03-04-20 05 GI Upset [facility] Work Phone: Medications Completed/Discontinued Medications Medication Drug Class(es) Dates Sig (Normalized) Sig (Original) Khloe powd (20 sources) Start: 12-16-2020 Khloe powd 6 teaspoonsful once daily. 0 12/16/2020 Active Problems Active Problems Problem Classification Problem Date Documented Da te Episodic/Chronic Abdominal pain (2 sources) Indigestion; Translations: [Epigastric pain] Episodic Administrative/social admission (1 source) Patient encounter status; Translations: [Dietary counseling and surveillance] Episodic Anxiety disorders (20 sources) Anxiety neurosis ; Translations: [Generalized anxiety disorder] Onset: 06-05-2005 11-13-2015 Chronic Mood disorders (20 sources) Depressive disorder; Translations: [Depression] Onset: 03-25-2012 03-25-2012 Chronic Nutritional deficiencies (20 sources) Vitamin D deficiency; Translations: [Vitamin D deficiency, unspecified] Onset: 08-03-2017 08-03-2017 Chronic Other endocrine disorders (20 sources) Hyperprolactinemia; Translations: [Hyperprolactinemia ] Onset: 12-12-2012 12-12-2012 Chronic Other gastrointestinal disorders (20 sources) Irritable bowel syndrome characterized by constipation; Translations: [Irritable bowel syndrome with constipation] Onset: 08-03-2017 12-16-2020 Chronic Other gastrointestinal disorders (2 sources) Constipation; Translations: [Constipation, unspecified] Episodic Other gastrointestinal disorders (1 source) Loose stool; Translations: [Other fecal abnormalities] 06-13-2023 Episodic Other non-traumatic joint disorders (1 source) Joint pain; Translations: [Pain in unspecified joint] Episodic Other skin disorders (1 source) Loss of hair; Translations: [Nonscarring hair loss, unspecified] Episodic Residual codes; unclassified (1 source) Difficulty sleeping ; Translations: [Sleep deprivation] Episodic Past or Other Problems Problem Classification Problem Date Documented Da te Episodic/Chronic Allergic reactions (20 sources) Adverse reaction to food; Translations: [Other adverse food reactions, not elsewhere classified, initial encounter] Onset: 08-03-2017 08-03-2017 Episodic Malaise and fatigue (20 sources) Fatigue; Translations: [Other fatigue] Onset: 08-03-2017 08-03-2017 Episodic Other connective tissue disease (20 sources) Muscle finding; Translations: [Myalgia, unspecified site] Onset: 11-13-2013 08-03-2017 Episodic Other gastrointestinal disorders (20 sources) Abdominal bloating; Translations: [Abdominal distension (gaseous)] Onset: 08-03-2017 08-03-2017 Episodic Other gastrointestinal disorders (20 sources) Small bowel bacterial overgrowth syndrome; Translations: [Other specified diseases of intestine] Onset: 12-16-2020 12-16-2020 Episodic Other screening for suspected conditions (not mental disorders or infectious disease) (20 sources) Increased prolactin level; Translations: [Other specified abnormal findings of blood chemistry] Onset: 08-03-2017 08-03-2017 Episodic Residual codes; unclassified (20 sources) Exposure to mercury; Translations: [Contact with and (suspected) exposure to other hazardous metals] Onset: 08-03-2017 08-03-2017 Episodic Residual codes; unclassified (20 sources) Contact with and (suspected) exposure to mold (toxic); Translations: [Contact with and (suspected) exposure to mold] Onset: 08-03-2017 08-03-2017 Episodic Spondylosis; intervertebral disc disorders; other back problems (20 sources) Neck pain; Translations: [Cervicalgia] Onset: 11-13-2013 11-13-2013 Episodic Results Test Name Value Interpretation Reference Range Facil ity Vital Signs Date Time Vital Sign Value Performing Clinician Faci lity 06-13-2023 13:42-0500 Body temperature 97.9 [degF] Krislyn Aberegg PA Work Phone: [facility] 06-13-2023 13:42-0500 Body weight 54.8 kg Krislyn Aberegg PA Work Phone: [facility] 06-13-2023 13:42-0500 Diastolic blood pressure 89 mm[Hg] Krislyn Aberegg PA Work Phone: [facility] 06-13-2023 13:42-0500 Heart rate 64 /min Krislyn Aberegg PA Work Phone: [facility] 06-13-2023 13:42-0500 Respiratory rate 18 /min Krislyn Aberegg PA Work Phone: [facility] 06-13-2023 13:42-0500 SaO2% (BldA) [Mass fraction] 100 % Krislyn Aberegg PA Work Phone: [facility] 06-13-2023 13:42-0500 Systolic blood pressure 154 mm[Hg] Krislyn Aberegg PA Work Phone: [facility] 09-17-2022 14:55-0400 Body height 166.4 cm Nini Lemons MD Work Phone: [facility] 09-17-2022 14:55-0400 Body weight 55.79 kg Nini Lemons MD Work Phone: [facility] 09-17-2022 14:55-0400 Diastolic blood pressure 60 mm[Hg] Nini Lemons MD Work Phone: [facility] 09-17-2022 14:55-0400 Systolic blood pressure 100 mm[Hg] Nini Lemons MD Work Phone: [facility] 04-16-2022 15:48-0400 Body height 166 cm Sandy Chance FISCAL MANAGER.DIRECTOR OF ACQUISITIONS Work Phone: [facility] 04-16-2022 15:48-0400 Body weight 56.38 kg Sandy Valdez FISCAL MANAGER.DIRECTOR OF ACQUISITIONS Work Phone: [facility] 04-16-2022 15:48-0400 Diastolic blood pressure 67 mm[Hg] Sandy Chance FISCAL MANAGER.DIRECTOR OF ACQUISITIONS Work Phone: [facility] 04-16-2022 15:48-0400 Heart rate 67 /min Sanyd Valdez FISCAL MANAGER.DIRECTOR OF ACQUISITIONS Work Phone: [facility] 04-16-2022 15:48-0400 Systolic blood pressure 119 mm[Hg] Sandy Chance FISCAL MANAGER.DIRECTOR OF ACQUISITIONS Work Phone: [facility] Encounters Encounter Date Encounter Type Care Provider Facility Start: 06-25-2023 End: 06-25-2023 ambulatory MELVIN LYNN Facility:[facility] Start: 06-24-2023 End: 06-24-2023 ambulatory EDDI LYNN Facility:[facility] Start: 06-13-2023 End: 06-13-2023 ambulatory EDDI MARKUS Facility:[facility] Start: 06-13-2023 End: 06-13-2023 Patient encounter procedure Carlene RENNER Work Phone: [facility] Procedures Date Procedure Procedure Detail Performing Clinician Start: 03-24-2023 Follow-up visit Follow-up DUYEN GUTIERREZ Start: 09-17-2022 DIAN SCREENING W PRASANNA Chacon MD Work Phone: Start: 09-17-2022 Mammography Nini Lemons MD Work Phone: Start: 05-10-2022 Breath hydrogen/meth ane test Waldemar Gutierres MD Work Phone: Start: 09-15-2021 Mammography Nini Lemons MD Work Phone: Start: 05-05-2018 Lipid 1996 panel - S laura or Plasma Screen [facility] Start: 02-23-2013 Colonoscopy Nini Lemons MD Work Phone: Plan of Treatment Date Care Activity Detail Author Start: 04-04-2029 Urine microalbumin profile DTaP,Tdap,Td Vaccine (2 - Td or Tdap) [facility] Start: 09-06-2025 HPV TESTING HPV TESTING [facility] Start: 09-06-2025 PAP TESTING PAP TESTING [facility] Start: 09-06-2025 Screening for malignant neoplasm of cervix [facility] Start: 12-17-2023 DIABETES SCREEN DIABETES SCREEN [facility] Start: 12-17-2023 Diabetes Screening Diabetes Screening [facility] Start: 09-18-2023 Mammography [facility] Start: 09-18-2023 Screening for malignant neoplasm of breast Mammogram Screening [facility] Start: 05-05-2023 Lipid 1996 panel - Serum or Plasma Lipid Screening [facility] Start: 05-05-2023 Lipid panel Lipid Screening [facility] Start: 05-05-2023 LIPID SCREEN LIPID SCREEN [facility] Start: 02-26-2023 Covid-19 Vaccine ( season) Covid-19 Vaccine ( season) [facility] Start: 02-26-2023 Influenza vaccination Influenza Vaccine (#1) [facility] Start: 02-23-2023 Colonoscopy COLONOSCOPY [facility] Start: 02-23-2023 COLORECTAL CANCER SCREENING COLORECTAL CANCER SCREENING [facility] Start: 02-23-2023 Screening for malignant neoplasm of colon [facility] Start: 09-15-2022 Mammography MAMMOGRAM [facility] Start: 04-16-2022 End: 06-16-2022 MAGNESIUM RBC [facility] Work Phone: Immunizations Immunization Date Immunization Notes Care Provider Fa cility 02-15-2021 influenza virus vaccine, unspecified formulation Screen [facility] 04-04-2014 influenza, seasonal, injectable Nini Lemons MD Work Phone: [facility] 05-25-2012 influenza virus vaccine, unspecified formulation Nini Lemons MD Work Phone: [facility] Work Phone: 05-10-2009 tetanus and diphther ia toxoids, not adsorbed, for adult use Nini Lemons MD Work Phone: [facility] Payers Date Payer Category Payer Unknown [id number] 2019 Unknown [id number] 2012 Unknown [id number] 2007 Unknown [id number] 1966 Unknown [id number] 1966 Unknown [id number] Social History Date Type Detail Facility Tobacco smoking stat [facility] Never smoked tobacco [facility] Start: 09-15-2021 End: 06-13-2023 Alcohol intake Current drinker of alcohol (finding) [facility] Start: 09-15-2021 End: 04-23-2023 Alcohol intake [facility] Start: 12-05-2015 History SDOH Alcohol Comment Occasionally [facility] Start: 1965 Sex Assigned At Female C [facility] Start: 09-05-2021 End: 05-06-2022 Exposure to SARS-CoV-2 (event) Not sure [facility] Start: 09-17-2022 End: 04-23-2023 Tobacco use panel [facility] Adult Depression Screening Assessment 1 [facility] Start: 09-29-2020 Gender identity Identifies as female gender (finding) [facility] Start: 09-29-2020 Sexual orientation Heterosexual (fin simon) [facility] Clinical Notes 12-05-2015 to 06-25-2023 Carlene Hernandez, ZURDO - 06/13/2023 2:10 PM ESTTelephone Encounter - Dianna Gonzalez [employer] - 09/24/2022 7:48 AM EDTTelephone Encounter - Dianna Gonzalez [employer] - 09/22/2022 1:12 PM EDT Note Date & Type Note Facility 06-25-2023 Note HNO ID: [id number] Author: Sandy Valdez APRN.DIRECTOR OF ACQUISITIONS Service: ? Author Type: Nurse Practitioner Type: Progress Notes Filed: 06/25/2023 9:00 AM Note Text: Follow-up Visit - virtual I have communicated my name and active licensure. The patient's identity and physical location were verified at the time of this visit. Either the patient or their legal inside account representative has been informed of the risks and benefits of -- and alternatives to -- treatment through a remote evaluation and consents to proceed with the evaluation remotely. Patient: Aranza Lee There is no height or weight on file to calculate BMI. Resting Metabolic Rate: 1151 Waist measurement: No waist measurement recorded. BP: ALLERGIES Allergen Reactions [place] food intolerance Carrot food intolerance [place] Intolerance Cymbalta [Duloxetin* Mental Status Change Suicidal and depletes sodium. Flexeril [Cyclobenz* GI and felt like she would pass out. Garlic food intolerance Mold Peanuts 2 on scale from 1-6 intolerance Potato intolerance Septra [Sulfamethox* Tingling body Trees Wheat, Wheat Germ GI Upset muscle aches/skin irritation Zoloft [Sertraline * Rash Current Outpatient Medications on File Prior to Visit Medication Sig amoxicillin-clavulanate potassium (AUGMENTIN) 875-125 mg per tablet Take 1 tablet by mouth two times a day for 7 days. Omeprazole Magnesium (PRILOSEC OTC) 20 mg tablet Take 1 tablet by mouth daily before breakfast. 1/2 hr before meal. Estradiol (VAGIFEM) 10 mcg vaginal tablet Use 1 tablet vaginally two times a week. Ther-Biotic Complete Capsules (Klaire/Prothera) probiotic (FRIDGE) Take 1 capsule by mouth once daily. immunoglobulin G (SBI PROTECT) powder Take 2.5 g by mouth twice daily. nystatin (MYCOSTATIN, NILSTAT) 500,000 unit tab Take 2 tablets by mouth twice daily. Cholecalciferol, Vitamin D3, 25 mcg (1,000 unit) cap Take 1 capsule by mouth once daily. hydrOXYzine HCl (ATARAX) 10 mg tablet Take 1 tablet by mouth as needed. Khloe powd 6 teaspoonsful once daily. calcium carb/magnesium ox,carb (TERRY-MAG ORAL) Take by mouth. [facility] Whole Probiotic supplement - (for sarah/yeast) probiotic+saccharomyces+biofilm disruptor Take 1 capsule by mouth once daily. Start with 2 jars. No fridge needed. Take at least 2 hrs away from nystatin/candibactin/diflucan. FLUoxetine (PROZAC) 20 mg capsule Take 1 capsule by mouth three times daily. Per Dr. Gutierrez. traZODone (DESYREL) 50 mg tablet Take 25 mg by mouth daily at bedtime. 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 SOMAT DYSFUNC PELVIC REG 09/23/2006 SUBMUCOUS LEIOMYOMA 01/21/2009 PAST SURGICAL HISTORY Procedure Laterality Date COLONOSCOPY FLX DX W/COLLJ SPEC WHEN PFRMD 02/23/2013 Colonoscopy ESOPHAGOGASTRODUODENOSCOPY TRANSORAL DIAGNOSTIC 02/23/2013 EGD HYSTEROSCOPY REMOVAL LEIOMYOMATA 04/26/09 h/s DANDC w/ resection of fibroid PAST SURGICAL HISTORY OF Cyst removed from back PAST SURGICAL HISTORY OF 10/08/05 myomectomy (fibroid) TONSILLECTOMY PRIMARY/SECONDARY Tonsillectomy Social History Tobacco Use Smoking status: Never Smokeless tobacco: Never Vaping Use Vaping Use: Never used Substance Use Topics Alcohol use: Yes Alcohol/week: 7.0 standard drinks of alcohol Types: 7 Glasses of Wine (5oz) per week Comment: Occasionally Drug use: No Functional Medicine Timeline MSQ: Patient Entered Questionnaire PROMIS Scale T-Scores -- HIGHER SCORES BETTER PROMIS Global Health - (T-Scores - the mean of general population = 50. Five points is a clinically meaningful difference.) 04/20/2022 06/04/2022 06/24/2023 Physical T-Score 44.9 47.7 42.3 Mental T-Score 45.8 48.3 48.3 Depression Screening: PHQ-9 12/08/2017 09/03/2020 06/24/2023 Score 0 5 4 PHQ-9 Self Harm 09/03/2020 06/24/2023 Question 9 Not at all Not at all PHQ-9 Self-Harm (Item 9) response options: 0 Not at all 1 Several days 2 More than half the days 3 Nearly every day PHQ-9 Levels: 0-4 Minimal depression 5-9 Mild depression 10-14 Moderate depression 15-19 Moderately severe depression 20-27 Severe depression D (more content not included)... [facility] 06-24-2023 Note HNO ID: [id number] Author: Jeanmarie Coello APRN.DIRECTOR OF ACQUISITIONS Service: ? Author Type: Nurse Practitioner Type: Progress Notes Filed: 06/24/2023 8:22 AM Note Text: Subjective HPI HPI Aranza Lee is a 57 year old female who presents today for CC of cough, sinus pressure, st. This started 9 days ago, greatly worsening last night. Has tried otc medication for relief. Symptoms are worsened by nothing. nonsmoker. 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 SOMAT DYSFUNC PELVIC REG 09/23/2006 SUBMUCOUS LEIOMYOMA 01/21/2009 PAST SURGICAL HISTORY Procedure Laterality Date COLONOSCOPY FLX DX W/COLLJ SPEC WHEN PFRMD 02/23/2013 Colonoscopy ESOPHAGOGASTRODUODENOSCOPY TRANSORAL DIAGNOSTIC 02/23/2013 EGD HYSTEROSCOPY REMOVAL LEIOMYOMATA 04/26/09 h/s DANDC w/ resection of fibroid PAST SURGICAL HISTORY OF Cyst removed from back PAST SURGICAL HISTORY OF 10/08/05 myomectomy (fibroid) TONSILLECTOMY PRIMARY/SECONDARY Tonsillectomy ALLERGIES [place]; Carrot; [place]; Cymbalta [Duloxetine]; Flexeril [Cyclobenzaprine Hcl]; Garlic; Mold; Peanuts; Potato; Septra [Sulfamethoxazole-Trimethoprim] ; Trees; Wheat, Wheat Germ; and Zoloft [Sertraline Hcl] MEDICATIONS Omeprazole Magnesium (PRILOSEC OTC) 20 mg tabletTake 1 tablet by mouth daily before breakfast. 1/2 hr before meal.Disp: 14 tabletRfl: 0 Estradiol (VAGIFEM) 10 mcg vaginal tabletUse 1 tablet vaginally two times a week.Disp: 8 tabletRfl: 11 Ther-Biotic Complete Capsules (Klaire/Prothera) probiotic (FRIDGE)Take 1 capsule by mouth once daily.Disp: Rfl: 0 immunoglobulin G (SBI PROTECT) powderTake 2.5 g by mouth twice daily.Disp: Rfl: Cholecalciferol, Vitamin D3, 25 mcg (1,000 unit) capTake 1 capsule by mouth once daily.Disp: Rfl: hydrOXYzine HCl (ATARAX) 10 mg tabletTake 1 tablet by mouth as needed.Disp: Rfl: Khloe powd6 teaspoonsful once daily.Disp: Rfl: calcium carb/magnesium ox,carb (TERRY-MAG ORAL)Take by mouth.Disp: Rfl: [facility] Whole Probiotic supplement - (for sarah/yeast) probiotic+saccharomyces+biofilm disruptorTake 1 capsule by mouth once daily. Start with 2 jars. No fridge needed. Take at least 2 hrs away from nystatin/candibactin/diflucan.D isp: Rfl: 0 FLUoxetine (PROZAC) 20 mg capsuleTake 1 capsule by mouth three times daily. Per Dr. Gutierrez.Disp: Rfl: 0 nystatin (MYCOSTATIN, NILSTAT) 500,000 unit tabTake 2 tablets by mouth twice daily.Disp: 120 tabletRfl: 2 traZODone (DESYREL) 50 mg tabletTake 25 mg by mouth daily at bedtime.Disp: Rfl: FAMILY HISTORY Problem Relation Age of Onset Heart Mother had severe heart disease Hypertension Mother COPD Mother other (reflux) Mother at 77yrs of age Hypertension Father A-Fib Osteoporosis Father Coronary Artery Disease Father 86 sudden other (Heart disease) Paternal Uncle Diabetes Maternal Aunt other (reflux) Brother other (ulcers) Brother Social History Tobacco Use Smoking status: Never Smokeless tobacco: Never Vaping Use Vaping Use: Never used Substance Use Topics Alcohol use: Yes Alcohol/week: 7.0 standard drinks of alcohol Types: 7 Glasses of Wine (5oz) per week Comment: Occasionally Drug use: No Review of Systems Constitutional: Positive for fever and malaise/fatigue. Negative for chills. HENT: Positive for congestion, sinus pain and sore throat. Negative for ear pain and nosebleeds. Respiratory: Positive for cough. Negative for shortness of breath and wheezing. Cardiovascular: Negative for chest pain. Gastrointestinal: Negative for diarrhea and vomiting. Musculoskeletal: Negative for neck pain. Objective Blood pressure 133/82, pulse 72, temperature 37.4 ?C (99.3 ?F), resp. rate 18, weight 54.9 kg (121 lb), last menstrual period 09/06/2018, SpO2 99%. Physical Exam Constitutional: General: She is not in acute distress. Appearance: She is not toxic-appearing or diaphoretic. HENT: Head: Normocephalic and atraumatic. Nose: Right Sinus: Frontal sinus tenderness present. Left Sinus: Frontal sinus tenderness present. Cardiovascular: Rate and Rhythm: Normal rate and regular rhythm. Heart sounds: Normal heart sounds, S1 normal and S2 normal. Pulmonary: Effort: Pulmonary effort is normal. Breath sounds: (more content not included)... [facility] 06-13-2023 Note HNO ID: [id number] Author: Carlene Hernandez PA Service: ? Author Type: Physician Head Resident Type: Progress Notes Filed: 06/13/2023 2:14 PM Note Text: This note was created using fastDoveriter. Subjective Aranza Lee is a 57 year old female. HPI 57-year-old female presents for acid reflux, loose stool. Patient states that she was COVID-positive 10 days ago. She states that it started as GI symptoms and she thought she had the stomach flu. She states she had some nausea and vomiting. She states that is now improved. She states she has history of IBS-constipation. She states that since being COVID-positive, she has had looser stool. She states it is not really diarrhea, but she would consider it diarrhea for her since she is usually constipated. She states that it is loose stool. No watery stool. She states that she is having 2 episodes of this daily. No vomiting. She denies any abdominal pain. No blood in the stool. Patient is also reporting acid reflux. She states that she has a history of this and usually can take Pepcid and it helps with symptoms, but it has not been helping recently. She has not tried Tums. She is not on a PPI. She denies any abdominal pain. She states it is just a gnawing feeling . No fevers. She still has a little bit of a lingering congestion. No cough. No chest pain or shortness of breath. 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 SOMAT DYSFUNC PELVIC REG 09/23/2006 SUBMUCOUS LEIOMYOMA 01/21/2009 PAST SURGICAL HISTORY Procedure Laterality Date COLONOSCOPY FLX DX W/COLLJ SPEC WHEN PFRMD 02/23/2013 Colonoscopy ESOPHAGOGASTRODUODENOSCOPY TRANSORAL DIAGNOSTIC 02/23/2013 EGD HYSTEROSCOPY REMOVAL LEIOMYOMATA 04/26/09 h/s [facility] w/ resection of fibroid PAST SURGICAL HISTORY OF Cyst removed from back PAST SURGICAL HISTORY OF 10/08/05 myomectomy (fibroid) TONSILLECTOMY PRIMARY/SECONDARY Tonsillectomy ALLERGIES [place]; Carrot; [place]; Cymbalta [Duloxetine]; Flexeril [Cyclobenzaprine Hcl]; Garlic; Mold; Peanuts; Potato; Septra [Sulfamethoxazole-Trimethoprim] ; Trees; Wheat, Wheat Germ; and Zoloft [Sertraline Hcl] MEDICATIONS Estradiol (VAGIFEM) 10 mcg vaginal tabletUse 1 tablet vaginally two times a week.Disp: 8 tabletRfl: 11 Ther-Biotic Complete Capsules (Klaire/Prothera) probiotic (FRIDGE)Take 1 capsule by mouth once daily.Disp: Rfl: 0 immunoglobulin G (SBI PROTECT) powderTake 2.5 g by mouth twice daily.Disp: Rfl: Cholecalciferol, Vitamin D3, 25 mcg (1,000 unit) capTake 1 capsule by mouth once daily.Disp: Rfl: hydrOXYzine HCl (ATARAX) 10 mg tabletTake 1 tablet by mouth as needed.Disp: Rfl: calcium carb/magnesium ox,carb (TERRY-MAG ORAL)Take by mouth.Disp: Rfl: FLUoxetine (PROZAC) 20 mg capsuleTake 1 capsule by mouth three times daily. Per Dr. Gutierrez.Disp: Rfl: 0 Omeprazole Magnesium (PRILOSEC OTC) 20 mg tabletTake 1 tablet by mouth daily before breakfast. 1/2 hr before meal.Disp: 14 tabletRfl: 0 nystatin (MYCOSTATIN, NILSTAT) 500,000 unit tabTake 2 tablets by mouth twice daily.Disp: 120 tabletRfl: 2 Khloe powd6 teaspoonsful once daily.Disp: Rfl: [facility] Whole Probiotic supplement - (for sarah/yeast) probiotic+saccharomyces+biofilm disruptorTake 1 capsule by mouth once daily. Start with 2 jars. No fridge needed. Take at least 2 hrs away from nystatin/candibactin/diflucan.D isp: Rfl: 0 traZODone (DESYREL) 50 mg tabletTake 25 mg by mouth daily at bedtime.Disp: Rfl: FAMILY HISTORY Problem Relation Age of Onset Heart Mother had severe heart disease Hypertension Mother COPD Mother other (reflux) Mother at 77yrs of age Hypertension Father A-Fib Osteoporosis Father Coronary Artery Disease Father 86 sudden other (Heart disease) Paternal Uncle Diabetes Maternal Aunt other (reflux) Brother other (ulcers) Brother Social History Tobacco Use Smoking status: Never Smokeless tobacco: Never Vaping Use Vaping Use: Never used Substance Use Topics Alcohol use: Yes Alcohol/week: 7.0 standard drinks of alcohol Types: 7 Glasses of Wine (5oz) per week Comment: Occasionally Drug use: No Review of Systems Constitutional: Negative for chills and fever. HENT: Positive for congestion. Negative for ear pain and sore throat. Respiratory: Negative for cough and shortness of breath. Cardiovascular: Nega (more content not included)... [facility] 06-13-2023 History of Presen t illness Narrative This note was created using [employer]. Subjective Aranza Lee is a 57 year old female. HPI 57-year-old female presents for acid reflux, loose stool. Patient states that she was COVID-positive 10 days ago. She states that it started as GI symptoms and she thought she had the stomach flu. She states she had some nausea and vomiting. She states that is now improved. She states she has history of IBS-constipation. She states that since being COVID-positive, she has had looser stool. She states it is not really diarrhea, but she would consider it diarrhea for her since she is usually constipated. She states that it is loose stool. No watery stool. She states that she is having 2 episodes of this daily. No vomiting. She denies any abdominal pain. No blood in the stool. Patient is also reporting acid reflux. She states that she has a history of this and usually can take Pepcid and it helps with symptoms, but it has not been helping recently. She has not tried Tums. She is not on a PPI. She denies any abdominal pain. She states it is just a gnawing feeling . No fevers. She still has a little bit of a lingering congestion. No cough. No chest pain or shortness of breath. 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 SOMAT DYSFUNC PELVIC REG 09/23/2006 SUBMUCOUS LEIOMYOMA 01/21/2009 PAST SURGICAL HISTORY Procedure Laterality Date COLONOSCOPY FLX DX W/COLLJ SPEC WHEN PFRMD 02/23/2013 Colonoscopy ESOPHAGOGASTRODUODENOSCOPY TRANSORAL DIAGNOSTIC 02/23/2013 EGD HYSTEROSCOPY REMOVAL LEIOMYOMATA 04/26/09 h/s [facility] w/ resection of fibroid PAST SURGICAL HISTORY OF Cyst removed from back PAST SURGICAL HISTORY OF 10/08/05 myomectomy (fibroid) TONSILLECTOMY PRIMARY/SECONDARY <AGE 13 Tonsillectomy ALLERGIES [place]; [place]; [place]; Cymbalta [Duloxetine]; Flexeril [Cyclobenzaprine Hcl]; Garlic; Mold; Peanuts; Potato; Septra [Sulfamethoxazole-Trimethoprim] ; Trees; Wheat, Wheat Germ; and Zoloft [Sertraline Hcl] MEDICATIONS Estradiol (VAGIFEM) 10 mcg vaginal tablet^Use 1 tablet vaginally two times a week.^Disp: 8 tablet^Rfl: 11 Ther-Biotic Complete Capsules (Klaire/Prothera) probiotic (FRIDGE)^Take 1 capsule by mouth once daily.^Disp: ^Rfl: 0 immunoglobulin G (SBI PROTECT) powder^Take 2.5 g by mouth twice daily.^Disp: ^Rfl: Cholecalciferol, Vitamin D3, 25 mcg (1,000 unit) cap^Take 1 capsule by mouth once daily.^Disp: ^Rfl: hydrOXYzine HCl (ATARAX) 10 mg tablet^Take 1 tablet by mouth as needed.^Disp: ^Rfl: calcium carb/magnesium ox,carb (TERRY-MAG ORAL)^Take by mouth.^Disp: ^Rfl: FLUoxetine (PROZAC) 20 mg capsule^Take 1 capsule by mouth three times daily. Per Dr. Gutierrez.^Disp: ^Rfl: 0 Omeprazole Magnesium (PRILOSEC OTC) 20 mg tablet^Take 1 tablet by mouth daily before breakfast. 1/2 hr before meal.^Disp: 14 tablet^Rfl: 0 nystatin (MYCOSTATIN, NILSTAT) 500,000 unit tab^Take 2 tablets by mouth twice daily.^Disp: 120 tablet^Rfl: 2 Khloe powd^6 teaspoonsful once daily.^Disp: ^Rfl: [facility] Whole Probiotic supplement - (for sarah/yeast) probiotic+saccharomyces+biofilm disruptor^Take 1 capsule by mouth once daily. Start with 2 jars. No fridge needed. Take at least 2 hrs away from nystatin/candibactin/diflucan.^ Disp: ^Rfl: 0 traZODone (DESYREL) 50 mg tablet^Take 25 mg by mouth daily at bedtime.^Disp: ^Rfl: FAMILY HISTORY Problem Relation Age of Onset Heart Mother had severe heart disease Hypertension Mother COPD Mother other (reflux) Mother at 77yrs of age Hypertension Father A-Fib Osteoporosis Father Coronary Artery Disease Father 86 sudden other (Heart disease) Paternal Uncle Diabetes Maternal Aunt other (reflux) Brother other (ulcers) Brother Social History Tobacco Use Smoking status: Never Smokeless tobacco: Never Vaping Use Vaping Use: Never used Substance Use Topics Alcohol use: Yes Alcohol/week: 7.0 standard drinks of alcohol Types: 7 Glasses of Wine (5oz) per week Comment: Occasionally Drug use: No Review of Systems Constitutional: Negative for chills and fever. HENT: Positive for congestion. Negative for ear pain and sore throat. Respiratory: Negative for cough and shortness of breath. Cardiovascular: Negative for chest pain. Gastrointestinal: Positive for diarrhea (Loose stool). Negative for abdominal pain, blood in stool, constipation, nausea and vomiting. + Reflux Objective BP 154/89 Pulse 64 Temp 36.6 C (97.9 F) Resp 18 Wt 54.8 kg (120 lb 12.8 oz) LMP 09/06/2018 SpO2 100% BMI 19.80 kg/m Physical Exam Vitals and nursing note reviewed. Constitutional: General: She is not in acute distress. Appearance: Normal appearance. She is not toxic-appearing. HENT: Nose: Nose normal. Mouth/Throat: Mouth: Mucous membranes are moist. Pharynx: No oropharyngeal exudate or posterior oropharyngeal erythema. Eyes: Conjunctiva/sclera: Conjunctivae normal. Cardiovascular: Rate and Rhythm: Normal rate and regular rhythm. Pulmonary: Effort: Pulmonary effort is normal. Breath sounds: Normal breath sounds. Abdominal: General: Abdomen is flat. Palpations: Abdomen is soft. Tenderness: There is no abdominal tenderness. There is no guarding or rebound. Neurological: Mental Status: She is alert. Assessment and Plan ASSESSMENT/PLAN: 1. Dyspepsia - ICD9: 536.8, ICD10: R10.13 (primary diagnosis) Etiology unclear - Begin treatment with Prilosec 20 mg QD - Follow up in 1 week or sooner if worsening of symptoms -Will start Prilosec. Recommend follow-up with PCP in 1 to 2 weeks. Follow-up sooner if symptoms worsen. Also recommended trying Tums for acute relief. -Go to ER with any abdominal pain. 2. Loose stools - ICD9: 787.7, ICD10: R19.5 -Possibly due to recent COVID. No diarrhea. No watery diarrhea. No signs of dehydration. -Follow-up with PCP or GI if symptoms continue. Diagnosis and treatment plan were discussed and questions were answered to the patient's satisfaction. Pt acknowledged understanding of concepts and follow up plan. Specific signs and symptoms that would indicate the need for higher level of care were discussed in detail warranting prompt ER evaluation. ZURDO Macias documented in this encounter [facility] 09-24-2022 Miscellaneous Notes Received documented approval for Imvexxy. Pt notified via [employer]. Dianna Gonzalez LPN PA still in process. Dianna Gonzalez LPN Electronic PA submitted for [employer]. Will await further response from insurance. Dianna Gonzalez LPN documented in this encounter [facility] 09-17-2022 Note HNO ID: [id number] Author: Nini Lemons MD Service: ? Author Type: Physician Type: Progress Notes Filed: 09/17/2022 5:29 PM Note Text: Instructor Adjunct Pharmacy Technician offered: Patient declines. Browning is a 56 year old who presents for an annual gynecologic exam with complaints, vaginal dryness and pain with intercourse. Ms. Lee reports her only concern today is that the vaginal estrogen tablets were helpful, but they caused bloating which caused intolerable back pain so she stopped back pain. She reports she also has IBS which exacerbates the bloating. Pt reports bloating started months after starting suppositories. Now feels better. She recently started the recommended probiotic to help with vaginal rhonda since she stopped the vaginal tablet. Postmenopausal: Yes since 2018 HRT use: No. Last Pap: 09/16/2020 normal HPV: 09/10/2020 negative History of abnormal pap: No Last mammogram: 2021 normal History of abnormal mammogram: No Sexually active: Yes Patient concerns for STD exposure: No. Pain with intercourse: Yes Postcoital bleeding: No Hot flashes: No Night sweats: No Vaginal dryness: Yes Mood swings: No Exercise: walking, some strength training, yoga OB History T0 L0 SAB0 IAB1 Ectopic0 Multiple0 Live Births0 Log Snaker History LMP: 09/06/2018, Postmenopausal Age at Menarche: Age at First : Age at Menopause: Log Snaker History Comments: Sexual Activity: Not Currently; Male Contraception: Condom PAST MEDICAL HISTORY Diagnosis Date Abdominal pain, unspecified site Actinic Damage//Sun-Damaged Skin 02/24/2010 Allergy, unspecified not elsewhere classified Anxiety neurosis 06/05/2005 Cervicalgia 11/13/2013 Depression Flushing 06/05/2005 Hyperprolactinemia (HCC) 12/12/2012 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 SOMAT DYSFUNC PELVIC REG 09/23/2006 SUBMUCOUS LEIOMYOMA 01/21/2009 PAST SURGICAL HISTORY Procedure Laterality Date COLONOSCOPY FLX DX W/COLLJ SPEC WHEN PFRMD 02/23/2013 Colonoscopy ESOPHAGOGASTRODUODENOSCOPY TRANSORAL DIAGNOSTIC 02/23/2013 EGD HYSTEROSCOPY REMOVAL LEIOMYOMATA 04/26/09 h/s [facility] w/ resection of fibroid PAST SURGICAL HISTORY OF Cyst removed from back PAST SURGICAL HISTORY OF 10/08/05 myomectomy (fibroid) TONSILLECTOMY PRIMARY/SECONDARY Tonsillectomy FAMILY HISTORY Problem Relation Age of Onset Heart Mother had severe heart disease Hypertension Mother COPD Mother other (reflux) Mother at 77yrs of age Hypertension Father A-Fib Osteoporosis Father Coronary Artery Disease Father 86 sudden other (Heart disease) Paternal Uncle Diabetes Maternal Aunt other (reflux) Brother other (ulcers) Brother SOCIAL HISTORY Social History Tobacco Use Smoking status: Never Smokeless tobacco: Never Vaping Use Vaping Use: Never used Substance Use Topics Alcohol use: Yes Alcohol/week: 17.5 standard drinks Types: 7 Glasses of Wine (5oz) per week Comment: Occasionally Drug use: No REVIEW OF SYSTEMS Abdomen: ADMITS to regular IBS related abdominal pain and constipation, no n/v/d. No bloating, early satiety, indigestion, or increased flatulence. Bladder: No dysuria, gross hematuria, urinary frequency, urinary urgency, or incontinence Breast: No breast lumps, nipple d/c, overlying skin changes, redness or skin retraction Allergies and current medication updated:Yes EXAM: BP 100/60 Ht 5' 5.5 (1.66m) Wt 123 lb (55.8kg) LMP 09/06/2018 BMI 20.15 kg/(m2). GENERAL: pleasant, female in no apparent distress HEENT: Normocephalic, atraumatic, mucus membranes moist, and no lesions NECK: Supple, full range of motion, no adenopathy, and thyroid normal DERMATOLOGY: Normal, without lesions, non-icteric, and non-hirsute BREAST: soft, non-tender, symmetric, no dominant mass, normal nipple-areolar complex, no lymphadenopathy, and no nipple discharge ABDOMEN: soft, non-tender, and no masses PELVIC: external genitalia normal, normal Bartholin's glands, urethra, [place]'s glands, no vulvar lesions, no cervical lesions, good vaginal support, physiologic discharge present, normal appearing perineal body and perianal region BIMANUAL: uterus normal size, shape and consistency, no adnexal masses, non-tender, and narrow introitus RECTOVAGINAL: deferred. NEURO: alert and oriented x3,exam grossly non-focal EXTREMITIES: normal ASSESSMENT/PLAN: 1) Health maintenance: Pap/HPV up to date. Mammogram ordered Mammogram up to date Nutrition, exercise and routine health maintenance exams reviewed. Calcium/Vitamin D supplementation information provided. (more content not included)... [facility] 09-17-2022 Note HNO ID: [id number] Author: RT Alvarez(R) Service: ? Author Type: Technologist Type: Progress Notes Filed: 09/17/2022 2:14 PM Note Text: Radiology Service Progress Note PATIENT NAME: Aranza Lee DATE OF SERVICE: September 17, 2022 TIME: 2:14 PM PATIENT IDENTITY VERIFICATION COMPLETED USING TWO (2) IDENTIFIERS: Name and Date of confirmed by patient verbally. FALL SCREENING: Has the patient had 2 falls in the last year or 1 fall with injury or currently using an Ambulatory Assistive Device (Walker, Cane, Wheelchair, Crutches, etc.)? No PATIENT GENDER DATA: Female. status: : No status: NO. PATIENT RELEVANT IMPLANT DATA REVIEWED: Not Applicable RADIOLOGY DEPARTMENT: Mammography PERIPHERAL IV DATA: Not applicable SIGNED BY: RT Alvarez(R) September 17, 2022 2:14 PM [facility] 09-17-2022 Instructions Nini Lemons MD - 09/17/2022 3:21 PM EDT Images from the original note were not included. Miralax/Dulcolax Bowel Prep For this bowel preparation, you will need to purchase the following medications at any pharmacy: Over the counter Miralax (generic name is polyethylene glycol) 8.3 oz or 238 grams Four (4) Dulcolax (generic name is Bisacodyl) tablets 3 days prior to your procedure, you need to be on a low fiber diet (Such as popcorn, beans, seeds, nuts, salad and raw vegetables, corn, fresh and dried fruit and multi-grain bread) YOU MUST BE ON CLEAR LIQUIDS FOR 2 FULL DAYS PRIOR TO YOUR COLONOSCOPY Day one which would be two days before your colonoscopy, you will need to be on clear liquids all day. You may have coffee or tea-black only (no cream), clear broths (beef, chicken or vegetable), apple juice, white grape juice, pop, Gatorade, Powerade, lemonade, Jello, popsicles, Huang-aid, and water-But nothing red or dark purple in color and no dairy products, tomato or orange juices. Day two which would be the day before your colonoscopy continue clear liquids all day as above. And follow the instructions below: 8:00 AM - Mix the Miralax with 64 oz of Gatorade or another clear liquid of choice and place in refrigerator. Most people say the drink is better cold. 4:00 PM - Take 2 of the Dulcolax tablets with 8 oz of water. 6:00 PM - Start to drink the Miralax mixture. You must finish it by midnight. 8:00 PM - Take the other 2 Dulcolax tablets with 8 oz of water. You may continue to drink clear liquids while you are taking your prep and after you finish it as long as it is before midnight. Drink lots of fluids so you don t become dehydrated. Nothing to drink after midnight the night before the procedure unless you are instructed differently by the physician or nurses. Please remember to take your normal medications the morning of the procedure with a small sip of water especially your blood pressure medications. If you are diabetic, you need to contact your physician about how to take your diabetic medications and/or insulin during the prepping period and the day of your procedure. Any questions please call: Dr. Maki or Dr. Bell [phone] Jennifer Hopper [phone] Dr. Landeros [phone] [facility] nurses [phone] documented in this encounter [facility] 09-17-2022 History of Presen t illness Narrative Instructor Adjunct Pharmacy Technician offered: Patient declines. Browning is a 56 year old who presents for an annual gynecologic exam with complaints, vaginal dryness and pain with intercourse. Ms. Lee reports her only concern today is that the vaginal estrogen tablets were helpful, but they caused bloating which caused intolerable back pain so she stopped back pain. She reports she also has IBS which exacerbates the bloating. Pt reports bloating started months after starting suppositories. Now feels better. She recently started the recommended probiotic to help with vaginal rhonda since she stopped the vaginal tablet. Postmenopausal: Yes since 2018 HRT use: No. Last Pap: 09/16/2020 normal HPV: 09/10/2020 negative History of abnormal pap: No Last mammogram: 2021 normal History of abnormal mammogram: No Sexually active: Yes Patient concerns for STD exposure: No. Pain with intercourse: Yes Postcoital bleeding: No Hot flashes: No Night sweats: No Vaginal dryness: Yes Mood swings: No Exercise: walking, some strength training, yoga OB History T0 L0 SAB0 IAB1 Ectopic0 Multiple0 Live Births0 Log Snaker History LMP: 09/06/2018, Postmenopausal Age at Menarche: Age at First : Age at Menopause: Log Snaker History Comments: Sexual Activity: Not Currently; Male Contraception: Condom PAST MEDICAL HISTORY Diagnosis Date Abdominal pain, unspecified site Actinic Damage//Sun-Damaged Skin 02/24/2010 Allergy, unspecified not elsewhere classified Anxiety neurosis 06/05/2005 Cervicalgia 11/13/2013 Depression Flushing 06/05/2005 Hyperprolactinemia (HCC) 12/12/2012 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 SOMAT DYSFUNC PELVIC REG 09/23/2006 SUBMUCOUS LEIOMYOMA 01/21/2009 PAST SURGICAL HISTORY Procedure Laterality Date COLONOSCOPY FLX DX W/COLLJ SPEC WHEN PFRMD 02/23/2013 Colonoscopy ESOPHAGOGASTRODUODENOSCOPY TRANSORAL DIAGNOSTIC 02/23/2013 EGD HYSTEROSCOPY REMOVAL LEIOMYOMATA 04/26/09 h/s D&C w/ resection of fibroid PAST SURGICAL HISTORY OF Cyst removed from back PAST SURGICAL HISTORY OF 10/08/05 myomectomy (fibroid) TONSILLECTOMY PRIMARY/SECONDARY <AGE 13 Tonsillectomy FAMILY HISTORY Problem Relation Age of Onset Heart Mother had severe heart disease Hypertension Mother COPD Mother other (reflux) Mother at 77yrs of age Hypertension Father A-Fib Osteoporosis Father Coronary Artery Disease Father 86 sudden other (Heart disease) Paternal Uncle Diabetes Maternal Aunt other (reflux) Brother other (ulcers) Brother SOCIAL HISTORY Social History Tobacco Use Smoking status: Never Smokeless tobacco: Never Vaping Use Vaping Use: Never used Substance Use Topics Alcohol use: Yes Alcohol/week: 17.5 standard drinks Types: 7 Glasses of Wine (5oz) per week Comment: Occasionally Drug use: No REVIEW OF SYSTEMS Abdomen: ADMITS to regular IBS related abdominal pain and constipation, no n/v/d. No bloating, early satiety, indigestion, or increased flatulence. Bladder: No dysuria, gross hematuria, urinary frequency, urinary urgency, or incontinence Breast: No breast lumps, nipple d/c, overlying skin changes, redness or skin retraction Allergies and current medication updated:Yes EXAM: BP 100/60 Ht 5' 5.5 (1.66m) Wt 123 lb (55.8kg) LMP 09/06/2018 BMI 20.15 kg/(m^2). GENERAL: pleasant, female in no apparent distress HEENT: Normocephalic, atraumatic, mucus membranes moist, and no lesions NECK: Supple, full range of motion, no adenopathy, and thyroid normal DERMATOLOGY: Normal, without lesions, non-icteric, and non-hirsute BREAST: soft, non-tender, symmetric, no dominant mass, normal nipple-areolar complex, no lymphadenopathy, and no nipple discharge ABDOMEN: soft, non-tender, and no masses PELVIC: external genitalia normal, normal Bartholin's glands, urethra, [place]'s glands, no vulvar lesions, no cervical lesions, good vaginal support, physiologic discharge present, normal appearing perineal body and perianal region BIMANUAL: uterus normal size, shape and consistency, no adnexal masses, non-tender, and narrow introitus RECTOVAGINAL: deferred. NEURO: alert and oriented x3,exam grossly non-focal EXTREMITIES: normal ASSESSMENT/PLAN: 1) Health maintenance: Pap/HPV up to date. Mammogram ordered Mammogram up to date Nutrition, exercise and routine health maintenance exams reviewed. Calcium/Vitamin D supplementation information provided. Colon cancer screening: colonoscopy ordered 2) Follow up one year or sooner as needed 3) reviewed vaginal dilators, coconut oil for lubrication. Offered trial of imvexxy- cost dependent. Lidocaine gel reviewed. Nini Carpenter MD documented in this encounter [facility] 09-17-2022 History of Presen t illness Narrative Radiology Service Progress Note PATIENT NAME: Aranza Lee DATE OF SERVICE: September 17, 2022 TIME: 2:14 PM PATIENT IDENTITY VERIFICATION COMPLETED USING TWO (2) IDENTIFIERS: Name and Date of confirmed by patient verbally. FALL SCREENING: Has the patient had 2 falls in the last year or 1 fall with injury or currently using an Ambulatory Assistive Device (Walker, Cane, Wheelchair, Crutches, etc.)? No PATIENT GENDER DATA: Female. status: : No status: NO. PATIENT RELEVANT IMPLANT DATA REVIEWED: Not Applicable RADIOLOGY DEPARTMENT: Mammography PERIPHERAL IV DATA: Not applicable SIGNED BY: RT Alvarez(R) September 17, 2022 2:14 PM documented in this encounter [facility] 07-15-2022 Miscellaneous Notes Form mailed to patient. Tammie Jarrett RN Form completed and signed by DM. In phone triage room waiting for patient's response. Tammie Jarrett RN Ok to complete form. Okay to complete form? documented in this encounter [facility] 07-14-2022 Note HNO ID: [id number] Author: Marleni Vizcaino MD Service: ? Author Type: Physician Type: Progress Notes Filed: 07/21/2022 2:00 PM Note Text: [place] Virtual Functional Medicine Follow-up Visit This Team Access Model visit is a virtual encounter. It required patient-provider interaction for the medical decision making as documented below. Patient: Aranza Lee There is no height or weight on file to calculate BMI. Resting Metabolic Rate: 1164 ALLERGIES Allergen Reactions [place] food intolerance Carrot food intolerance [place] Intolerance Cymbalta [Duloxetin* Mental Status Change Suicidal and depletes sodium. Flexeril [Cyclobenz* GI and felt like she would pass out. Garlic food intolerance Mold Peanuts 2 on scale from 1-6 intolerance Potato intolerance Septra [Sulfamethox* Tingling body Trees Wheat, Wheat Germ GI Upset muscle aches/skin irritation Zoloft [Sertraline * Rash Current Outpatient Medications on File Prior to Visit Medication Sig immunoglobulin G (SBI PROTECT) powder Take 2.5 g by mouth twice daily. nystatin (MYCOSTATIN, NILSTAT) 500,000 unit tab Take 2 tablets by mouth twice daily. Estradiol (VAGIFEM) [address] one tablet vaginally daily x 2 weeks then use one tablet 2x week G.I. Benefits (DaVinci) As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 questions regarding how to perform any of the [place] Testing Kits ( such as GI Effects, Nutreval, Hydrogen Breath Test ). Please obtain blood draws for the Rank By Search Diagnostics NutrEval Profile and other test kits ordered by your provider at the [facility] at designated [facility] Labs and times. The designated labs are as follows: ~[place] : Q2 @ [facility] Wednesday-Wednesday 8am-1 pm and 1:30pm-4:30 pm G-10 Wednesday-Wednesday 8am-5pm. ~[facility] : Labs Wednesday-Wednesday 8am-1pm. ~Or at a local lab where you live: [facility] Mason Marleni Vizcaino MD Time spend with patient: I spent 30 minutes in the visit with more than 50% of the time spent counseling in regards to above. documented in this encounter [facility] 05-08-2022 Miscellaneous Notes Patient had yearly exam 09/15/2021 documented in this encounter [facility] 05-08-2022 Miscellaneous Notes Patient calls and notified of results and providers instructions. Patient verbalizes understanding. Odalys Taveras RN Phone call placed brief message to contact a nurse for results. Rach Dumont LPN Please notify testing showed no uti, f/u with pcp or urology d/t blood in urine. documented in this encounter [facility] 04-21-[address] - 04/21/2022 9:51 AM EDT [facility] FOLLOW UP NUTRITION INSTRUCTIONS Nutrition Follow-up: In 6-8 weeks with Laura Cervantes RD. Your Prescribed Nutrition Plan: Nutrition Plan: ood Plan: Low-FODMAP Food Plan Ensure adequate intake of nutrients and polyphenols to support gut lining integrity: Zinc - In GI benefits Vitamin D - Taking supplement Vitamin A (increase through food) - - sweet potato, squash, red peppers, [place]-3 Fatty Acids - Foods Rich in [place]-3: - Wild caught fish (salmon, mackerel, anchovies, sardines, and johnson are some of the best) *think SMASH - Grass-fed meats - Sea vegetables/microalgae (kelp, ximena, spirulina, dulse, seaweed, chlorella, to name a few) - [place] 3 enriched eggs - Walnuts - Adalberto seeds, ground flaxseeds, and hemp seeds - Flax oil - Leafy greens Curcumin (in Turmeric) EGCG (in Green Tea) Bone broth 2. Continue a lower FODMAP diet while doing the stool study and acquiring the GI Benefits supplement. Try not to eat the same foods every day as this leads to increased food sensitivities with a leaky gut. More information about FODMAPS: https://www.Auction.comap.com/ab zik-trnyyq-gfz-ibs/ 1. Begin to adapt eating pattern to lower-FODMAP eating choices -Korio Low-FODMAP Eating Plan from Nelson Heard:http://72798.com/wp-content/uploads/Paleo-L nf-RFMBBM-Mslx-Food-List-1.pdf -Paleo Low-FODMAP eating plan from Celsa Mom: https://www.Ohmconnect/mod dxezvq-gbevt-dkv-fodmap-intoler ance/ -Dianelys Quintero low-FODMAP list: https://www.InflaRx/lo w-fodmapgrocerylist 2. Condiments -FODY foods 3. Sweeteners -[place], raspberry, citrus honey have a 50:50 glucose:fructose ratio (likely ok in small amounts) -Maple syrup ok as a sweetener 5. Beverages -Focus on fennel tea, weakly brewed green teas -https://www.Optrace /tea-fodmaps/ Low-FODMAP Herbs/Spices Cook Islander Coriander, cumin, paprika, cinnamon, chilli, black pepper, cloves Romanian Thyme, nutmeg, rachna, lesli, tarragon, black pepper, saffron, parsley Gibraltarian Parsley, basil, bay leaves, lesli, rachna, oregano chives, chilli, coriander, fenugreek, lemongrass, mint, pandan leaves, swedish basil, cardamom, cloves, cumin, fennel seeds, star anise, turmeric, five spice, sesame Greenlandic/Swiss Fennel seeds, asafoetida, chilli, cardamom, black pepper, cumin, ildefonso, bay leaves, cinnamon, cloves, coriander, donnelly leaves, donnelly powder, fenugreek, goraka, giovany, mint, mustard seeds, nutmeg, poppy seeds, saffron, sesame seeds, tamarind, turmeric, basil, lemongrass, rampa leaves Toole leaves, cardamom, cinnamon, cloves, cumin, giovany, coriander seed, allspice, mint, fenugreek, parsley, sesame seeds, thyme, nutmeg, chilli Macedonian Cinnamon, turmeric, giovany, black pepper, paprika, sesame seeds, coriander, saffron, cloves, fennel, fenugreek, mint, parsley, coriander Pitcair[place] Islander Saffron, paprika, bay leaf, rachna, parsley, thyme, chilli Source: https://www.Mashup Arts/bl og/wqkhp-tbgkg-dgktmx-low-fodma p-diet/ Focus on consumption of low-FODMAP fruits/vegetables: Vegetables/Herbs Arugula bamboo shoots Basil Renner sprouts beets (canned or pickled) Montoya peppers Bok tomás Broccoli Cabbage (common, red or green) Ildefonso Carrots Celeriac Orbisonia pepper Chives Cilantro Sandee greens [place] Eggplant Endive Fennel bulb (few slices) Giovany root Green beans Kale Rayshawn greens (no white part or bulb) Lettuce Mint Olives Oyster mushrooms Parsley Parsnip Potato (white) Pumpkin (canned) Radish Rachna Rutabaga Scallion (no white part or bulb) Seaweed (ximena) Spinach Squash (kabocha, chastity izaguirre, spaghetti) Sweet potato ( small) Togolese chard Thyme Tomatoes Turnip Water chestnuts Watercress Zucchini squash (5-6 slices) Fruits Avocado (3 slices) Banana (small firm) Blueberries (handful) Cantaloupe Bruna Coconut (fresh + dried) Cranberries (1 TB) Dragon fruit Grapes (red, green, black) Guava (ripe) Honeydew Kiwifruit (gold + green) Lemon [place] Papaya Passion fruit Pineapple Plantain Pomegranate (handful) Raisins (1 TB) Raspberries Rhubarb Star fruit Strawberries Tangelo Source: https://www.InflaRx/lo wfodmapdietchecklists 3. Incorporate eating strategies to aid digestion: Take 5 before a meal- 5 deep belly breaths before eating. Eat slowly and chew food well Maintain a calm eating environment Promote motility with adequate fluids & regular activity Give digestion a head start Cook or blend vegetables to improve digestibility Choose nut/seed butters instead of whole nuts & seeds Soak nuts and seeds Incorporate gentle movement after meals to aid digestion: https://www.yogajournal.com/pos es/yiep-ot-txzlmlh/digestion ADDITIONAL INSTRUCTIONS: How to Contact Your Functional Medicine Team (Open M-F 8am-5pm): 1. REGISTRAT-MAPIhart is the BEST form of communication to reach the Functional Medicine Team, see test results and request refills. Please allow 72 business hours for a response. Directions for signing up are included in your New Patient Folder. (Or you can go to [email or web address]) 2. For nutrition related questions or concerns, Touchbaset message your physician and include Attn: Laura Cervantes RD at the top of the message. AdMobilize messaging is meant to support implementation of previously outlined nutrition care plans. In the interest of safe, effective and personalized care, you are asked to schedule a follow-up appointment if: It has been >6 months since your last nutrition appointment Your question requires reassessment or involves a new plan of care Your question concerns a new diagnosis, symptoms(s) and/or health concern Ordering Supplements: Supplements can be ordered from the [facility]'s [facility]'s Online Store: [email or web address] New patients to the Healthy Living Shop will need to enter the provider code FUNCTIONAL to register their account. 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 SOMAT DYSFUNC PELVIC REG 09/23/2006 SUBMUCOUS LEIOMYOMA 01/21/2009 Allergies: [place]; Carrot; [place]; Cymbalta [Duloxetine]; Flexeril [Cyclobenzaprine Hcl]; Garlic; Mold; Peanuts; Potato; Septra [Sulfamethoxazole-Trimethoprim] ; Trees; Wheat, Wheat Germ; and Zoloft [Sertraline Hcl] Current Medications/Supplements Current Outpatient Medications on File Prior to Visit Medication Sig G.I. Benefits (DaVinci) As a dietary supplement, mix one scoop with cold water or juice once or twice daily, or as directed by your health care practitioner. Estradiol (VAGIFEM) [address] one tablet vaginally daily x 2 weeks then use one tablet 2x week Cholecalciferol, Vitamin D3, 25 mcg (1,000 unit) cap Take 1 capsule by mouth once daily. hydrOXYzine HCl (ATARAX) 10 mg tablet Take 1 tablet by mouth as needed. Khloe powd 6 teaspoonsful once daily. Qmcmtva-a-Jsfaqnvqj (Pure Encapsulations) Take 3 capsules daily, in divided doses with meals calcium carb/magnesium ox,carb (TERRY-MAG ORAL) Take by mouth. [facility] Whole Probiotic supplement - (for sarah/yeast) probiotic+saccharomyces+biofilm disruptor Take 1 capsule by mouth once daily. Start with 2 jars. No fridge needed. Take at least 2 hrs away from nystatin/candibactin/diflucan. FLUoxetine (PROZAC) 20 mg capsule Take 1 capsule by mouth three times daily. Per Dr. Gutierrez. traZODone (DESYREL) 50 mg tablet Take 25 mg by mouth daily at bedtime. COMPOUNDED PRESCRIPTION MASSOTHERAPY. Once a month. Cervicalgia - ICD9: 723.1, ICD10: M54.2 Current Facility-Administered Medications on File Prior to Visit Medication lactated ringers iv infusion ondansetron (PF) 4 mg injection (ZOFRAN) acetaminophen 650 mg tab(s) (TYLENOL) Primary ICD-10 Diagnosis Addressed: Constipation, unspecified constipation type [K59.00] Provider Nutrition Notes: Consider 10 day detox (RD Note: patient is already limited in intake and avoiding all of the bae detox elements) K58.1 Irritable bowel syndrome with constipation (primary encounter diagnosis) K59.00 Constipation, unspecified constipation type F41.9 Anxiety Z72.820 Poor sleep L65.9 Hair loss M25.50 Arthralgia, unspecified joint Status of Previous Concerns 1. Anxiety 2. Stomach acid 3. Constipation - returned 4. Increased food sensitivities- getting worse 5. Elevated progresterone Chief Concerns: Return of IBS-C symptoms- taking relax and khloe fiber, 1 BM/day but not ideal Anxiety is higher Increased food sensitivities Nutrition Assessment (updated 04/20/22) Current Symptom Review: Last seen by nutrition 10/23/2020 and recently seen by Sandy Valdez APRN, DIRECTOR OF ACQUISITIONS 04/16/2022. Current sinus infection. Dx IBS-C. Food intolerances. Hx of SIBO. Having current flares from lack of sleep, stress, too much coffee, changes in eating schedule that lead to constipation and inflammation in joints. Feels more sensitive to other foods now. Trying to get back. Taking khloe fiber at an increased dose now. Food and Nutrition History (update): Restrictive due to intolerances. GF, DF, no caffeine.Trying to stay lower FODMAP as well right now. Very little grain or sprouted grain and oatmeal. Soaked walnut and pumpkin seeds. Kale was main green then got sensitive. Avoid spinach because feel sensitive to oxalate Current Adverse Reactions to Foods: Yes, corn, wheat, almonds Subjective 10/23/2020: - Last seen 2017 - Had a UTI, had to take antibiotics, hasn't felt well since - Typical weight is 115#, lost about 10# related to poor appetite - Loves dairy - stopped milk and it has helped with digestive symptoms - Started antibiotics through GI for SIBO last Wednesday Subjective 12/07/2017: What are the nutrition-related successes? - Continues the anit- sarah diet - 1 BM everyday, Adding MCT to completed meals What are the nutrition-related concerns? - could not tolerate collagen - acid reflux - Limited food choices - will reintroduce today Diet Recall: Yes B: Oatmeal soaked in hot water, rinsed then cooked with turmeric, giovany, berries, walnuts and coconut milk L: Greens, cucumber with protein (tuna, chicken) turmeric and giovany D: repeat of lunch; butternut squash, sweet potato Snacks: green banana; just restarted some bone broth; tiny bit of dark chocolate Beverages: Anthropometrics LMP 09/06/2018 Last Height: Last 1 Encounter Ht Readings: Date: Ht: 04/16/2022 166 cm (5' 5.35 ) Last Weight: Last Wt 04/16/22 : 56.4 kg (124 lb 4.8 oz) 09/15/21 : 54 kg (119 lb) 08/22/21 : 57.3 kg (126 lb 6.4 oz) Wt: 56.4 kg (124 lb 4.8 oz) BMI: 20.46 kg/(m^2) Weight is stable about 115-116 but retains some water Nutrition Prescription Energy: Resting Metabolic Rate: 1169 Protein: 0.8g/kg Nutrition Diagnosis: Altered GI function related to IBS as evidenced by patient reported digestive issues and constipation Status: Active Nutrition Diagnosis: Food and nutrition related knowledge deficit related to lack of prior education as evidenced by patient's verbalized inaccurate/incomplete information Status: Active Learning Needs Assessment: Barriers to Learning: Ready to Learn (no barriers noted) Assessed motivation to learn: high Biochemical and Laboratory Data Conventional/Advanced Testing Component Latest Ref Rng & Units 04/16/2022 TSH 0.270 - 4.200 mIU/L 1.550 Free T4 0.9 - 1.7 ng/dL 1.0 Free T3 2.3 - 4.1 pg/mL 2.5 Homocysteine, Serum <15.1 umol/L 6.6 Zinc 60 - 120 ug/dL 62 Vitamin D 25 Hydroxy 31.0 - 80.0 ng/mL 40.9 Laboratory Values Addressed: None addressed today Nutrition Intervention (New and Reinforcement): Current Nutrition Goal(s): reduce diet-related inflammation suspected as symptom trigger and reduce symptoms Food Plan: Low-FODMAP Food Plan Ensure adequate intake of nutrients and polyphenols to support gut lining integrity: Zinc - In GI benefits Vitamin D - Taking supplement Vitamin A (increase through food) - - sweet potato, squash, red peppers, [place]-3 Fatty Acids - Foods Rich in [place]-3: - Wild caught fish (salmon, mackerel, anchovies, sardines, and johnson are some of the best) *think SMASH - Grass-fed meats - Sea vegetables/microalgae (kelp, ximena, spirulina, dulse, seaweed, chlorella, to name a few) - [place] 3 enriched eggs - Walnuts - Adalberto seeds, ground flaxseeds, and hemp seeds - Flax oil - Leafy greens Curcumin (in Turmeric) EGCG (in Green Tea) Bone broth 2. Continue a lower FODMAP diet while doing the stool study and acquiring the GI Benefits supplement. Try not to eat the same foods every day as this leads to increased food sensitivities with a leaky gut. More information about FODMAPS: https://www.hybris.LeanKit/ab rmn-umlyvz-zlq-ibs/ 1. Begin to adapt eating pattern to lower-FODMAP eating choices -Paleo Low-FODMAP Eating Plan from SnuppsmaríaFundology:http://72798.com/wp-content/uploads/Paleo-L fr-GCQOOO-Subr-Food-List-1.pdf -Paleo Low-FODMAP eating plan from [facility]: https://www.Ohmconnect/mod psvksd-yzoaw-cra-fodmap-intoler ance/ -Dianelys Quintero low-FODMAP list: https://www.TouchbasehandyGutenbergz.LeanKit/harmony w-fodmapgrocerylist 2. Condiments -FODY foods 3. Sweeteners -[place], raspberry, citrus honey have a 50:50 glucose:fructose ratio (likely ok in small amounts) -Maple syrup ok as a sweetener 5. Beverages -Focus on fennel tea, weakly brewed green teas -https://www.Adamis Pharmaceuticals.LeanKit /tea-fodmaps/ Low-FODMAP Herbs/Spices Cook Islander Coriander, cumin, paprika, cinnamon, chilli, black pepper, cloves Romanian Thyme, nutmeg, rachna, lesli, tarragon, black pepper, saffron, parsley Gibraltarian Parsley, basil, bay leaves, lesli, rachna, oregano chives, chilli, coriander, fenugreek, lemongrass, mint, pandan leaves, swedish basil, cardamom, cloves, cumin, fennel seeds, star anise, turmeric, five spice, sesame Greenlandic/Swiss Fennel seeds, asafoetida, chilli, cardamom, black pepper, cumin, ildefonso, bay leaves, cinnamon, cloves, coriander, donnelly leaves, donnelly powder, fenugreek, goraka, giovany, mint, mustard seeds, nutmeg, poppy seeds, saffron, sesame seeds, tamarind, turmeric, basil, lemongrass, rampa leaves [facility] Toole leaves, cardamom, cinnamon, cloves, cumin, giovany, coriander seed, allspice, mint, fenugreek, parsley, sesame seeds, thyme, nutmeg, chilli Macedonian Cinnamon, turmeric, giovany, black pepper, paprika, sesame seeds, coriander, saffron, cloves, fennel, fenugreek, mint, parsley, coriander [place]cair[place] Islander Saffron, paprika, bay leaf, rachna, parsley, thyme, chilli Source: https://www.hybris.LeanKit/bl og/fempa-plkbi-gdgtun-low-fodma p-diet/ Focus on consumption of low-FODMAP fruits/vegetables: Vegetables/Herbs Arugula bamboo shoots Basil Renner sprouts beets (canned or pickled) [place]oya peppers Bok tomás Broccoli Cabbage (common, red or green) Ildefonso Carrots Celeriac Orbisonia pepper Chives Cilantro Sandee greens [place] Eggplant Endive Fennel bulb (few slices) Giovany root Green beans Kale Rayshawn greens (no white part or bulb) Lettuce Mint Olives Oyster mushrooms Parsley Parsnip Potato (white) Pumpkin (canned) Radish Rachna Rutabaga Scallion (no white part or bulb) Seaweed (ximena) Spinach Squash (kabocha, chastity izaguirre, spaghetti) Sweet potato ( small) Togolese chard Thyme Tomatoes Turnip Water chestnuts Watercress Zucchini squash (5-6 slices) Fruits Avocado (3 slices) Banana (small firm) Blueberries (handful) Cantaloupe Bruna Coconut (fresh + dried) Cranberries (1 TB) Dragon fruit Grapes (red, green, black) Guava (ripe) Honeydew Kiwifruit (gold + green) Lemon [place] Papaya Passion fruit Pineapple Plantain Pomegranate (handful) Raisins (1 TB) Raspberries Rhubarb Star fruit Strawberries Tangelo Source: https://www.InflaRx/lo wfodmapdietchecklists 3. Incorporate eating strategies to aid digestion: Take 5 before a meal- 5 deep belly breaths before eating. Eat slowly and chew food well Maintain a calm eating environment Promote motility with adequate fluids & regular activity Give digestion a head start Cook or blend vegetables to improve digestibility Choose nut/seed butters instead of whole nuts & seeds Soak nuts and seeds Incorporate gentle movement after meals to aid digestion: https://www.yogajournal.com/pos es/lonj-yl-xrnowgx/digestion Resources/Educational Materials Provided embedded above Adherence Potential to Goals/Care Plan: High Nutrition Monitoring & Evaluation: Meal and Snack Pattern, Nutrition Related Laboratory Values, and Subjective Symptoms Criteria: Laboratory Data, MSQ, Dietary Recall Follow up: 6-8 weeks Time Spent with patient: 30 minutes Consult Billing Type: Reassessment/15 minutes, 2 increment(s), 30 minutes Number of Increments: 2 (30 minutes) Referred/Supervised by: Carina Valdez CNP Signed by: Laura Cervantes RD documented in this encounter [facility] 04-16-2022 Instructions Sandy Valdez APRN.CASIMIRO - 04/16/2022 3:45 PM EDT Plan and Lifestyle Prescription Plan/Instructions/Resources: Reviewed labs and plan with patient. Discussed opportunities to communicate with myself and team if needed before next appointment, ie, MyChart, telephone, virtual visits. CFM labs today GI Effects stool study - complete in about 6 weeks- stop L-glutamine or GI Benefits and probiotics 2 weeks prior to testing G.I. Benefits (DaVinci) Sig: As a dietary supplement, mix one scoop with cold water or juice once or twice daily, or as directed by your health care practitioner. Continue current supplements May start the following to soothe the mucosal layer of your gut or restart your L-glutamine G.I. Benefits (DaVinci) Sig: As a dietary supplement, mix one scoop with cold water or juice once or twice daily, or as directed by your health care practitioner. Follow up with sales and marketing specialist for support with diet Follow up with health women's soccer coach for sleep hygiene and stress management Medications/Supplements Recommended: Medication orders placed this encounter G.I. Benefits (DaVinci) Sig: As a dietary supplement, mix one scoop with cold water or juice once or twice daily, or as directed by your health care practitioner. I recommend the supplements from the [facility] Healthy Living Store Online Store at https://[employer]OnCore Biopharma .LeanKit/ as we have thoroughly evaluated the research and use only highest quality supplements. Please use code: functional. Follow up: Please schedule a follow up visit with the following Caregivers: Provider: 10weeks LIFESTYLE PRESCRIPTION Functional Nutrition: Consider 10 day detox Sleep: Sleep goal for most adults is a minimum of 7-9 hours nightly. Exercise Prescription: Numerous studies confirm the benefits of regular moderate aerobic exercise (walking, swimming, elliptical machine, cycling, etc.) for 30 min 5 days per week (150 min goal). Stress Management: 1) Please look into this Heart Rate Variability BioFeedback Tool (www.heartmath.org). 2) A regular, daily meditation practice of at least 15-20 minutes will change your brain--as well as your genes! Behavioral Health Therapist: If I recommended counseling or individual therapy, please schedule an individual appointment with our Functional Medicine Behavioral Health Therapist after your visit today. The Behavioral Health Therapist helps patients identify and understand feelings and behaviors, experience the process of making positive change, and gain healthy coping skills. Health Coaching: Please consider scheduling with our [place] [facility] health coaches for a phone or virtual visit for accountability, goal setting and help with behavior record changer the next 6-8 weeks to be successful with your goals. [phone]. Smart phone apps to begin a meditative practice: Headspace (free for first 10 days) Insight Meditation Timer- (Free)-Great all-around dmitry to use for guided meditations of many different types and lengths or just to use as a tool to time and track your meditation practice. This is my absolute favorite! Calm- (Free) Walking Meditations-($1.99)- Get your walk AND meditation done together. A good way to start out for individuals who feel they just can't sit still to begin a meditative practice. During the next 6-8 weeks you'll be working on your diet plan discussed with our wedger and gluer, allowing for gentle detoxification and decreasing inflammation - while we are gathering your lab results and combining those with your complete history to formulate a very personalized treatment plan. LAB results: Due to the complexity of the testing performed, we are not able to review labs via REGISTRAT-MAPIhart or over the phone, but please know, if any of your labs are critical we will contact you. Otherwise, we will review all your labs at your next visit. We will go over a lot of information during your follow up visit - so please be well-rested and you may want to bring someone with you, if possible. Also make sure to schedule with the wedger and gluer (this will not happen automatically) as you did with your first visit so that she can review nutritional aspects of your treatment plan. By your 3rd visit, as things are improving, we will likely transition you to one of our very capable Certified Nurse Practitioners/Physician Assistants for further follow-up. Potential future labs: Any Rank By Search labs ordered take about 4 weeks to return. Do them as soon as possible so that we have the results before your next appointment. You can access them on the Rank By Search website and it can be beneficial if you review them prior to your next visit. [email or web address]. Read about NutrEval if this was ordered. *Sandy Valdez APRN.CNP documented in this encounter [facility] 04-16-2022 History of Presen t illness Narrative Follow-up Visit Patient: Aranza Lee There is no height or weight on file to calculate BMI. RMR can't be calculated - Weight unrecorded in last 120 days. Waist measurement: No waist measurement recorded. BP: ALLERGIES Allergen Reactions [place] food intolerance Carrot food intolerance [place] Intolerance Cymbalta [Duloxetin* Mental Status Change Suicidal and depletes sodium. Flexeril [Cyclobenz* GI and felt like she would pass out. Garlic food intolerance Mold Peanuts 2 on scale from 1-6 intolerance Potato intolerance Septra [Sulfamethox* Tingling body Trees Wheat, Wheat Germ GI Upset muscle aches/skin irritation Zoloft [Sertraline * Rash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 psychological fa ctors 03/25/2012 05/26/2012 Pain in lower limb 01/26/2012 04/19/2014 Overview: Right ankle, leg neuralgia, small fiber neuropathy. 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 10/24/2010 Intervertebral thoracic disc disorder with myelopathy, thoracic region 08/16/2009 01/28/2012 Menorrhagia 04/26/2009 04/19/2014 Submucous leiomyoma of uterus 01/21/2009 Abdominal Pain, Left Lower Quadrant 12/14/2008 01/28/2012 Nonallopathic lesion of pelv ic region, not elsewhere classified 09/23/2006 07/21/2012 Somatization disorder 09/20/2006 01/28/2012 Incomplete bladder emptying 05/07/200609/27 Thoracic or lumbosacral neuritis or radiculitis, unspecified 01/11/2006 04/19/2014 Irritable bowel 09/04/2005 01/28/2012 Flushing 06/05/2005 05/26/2012 Other malaise and fatigue 06/05/20052010 Irritable bowel syndrome 014 documented as of this encounter (statuses as of 10/07/2021) [facility] History of Past illness Narrative* Problem Noted Date Resolved Date Menorrhagia with regular cycle 12/05/2015 0 10/17/2016 Degeneration of cervical intervertebral disc 04/19/2014 Pain in thoracic spine 01/18/2013 4 Neuropathy 08/24/2012 04/19/2014 Other pain disorders related to psychological fa ctors 03/25/2012 05/26/2012 Pain in lower limb 01/26/2012 04/19/2014 Overview: Right ankle, leg neuralgia, small fiber neuropathy. 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 10/24/2010 Intervertebral thoracic disc disorder with myelopathy, thoracic region 08/16/2009 01/28/2012 Menorrhagia 04/26/2009 04/19/2014 Submucous leiomyoma of uterus 01/21/2009 Abdominal Pain, Left Lower Quadrant 12/14/2008 01/28/2012 Nonallopathic lesion of pelv ic region, not elsewhere classified 09/23/2006 07/21/2012 Somatization disorder 09/20/2006 01/28/2012 Incomplete bladder emptying 05/07/200609/27 Thoracic or lumbosacral neuritis or radiculitis, unspecified 01/11/2006 04/19/2014 Irritable bowel 09/04/2005 01/28/2012 Flushing 06/05/2005 05/26/2012 Other malaise and fatigue 06/05/20052010 Irritable bowel syndrome 014 documented as of this encounter (statuses as of 10/09/2021) [facility] History of Past illness Narrative* Problem Noted Date Resolved Date Menorrhagia with regular cycle 12/05/2015 0 10/17/2016 Degeneration of cervical intervertebral disc 04/19/2014 Pain in thoracic spine 01/18/2013 4 Neuropathy 08/24/2012 04/19/2014 Other pain disorders related to psychological fa ctors 03/25/2012 05/26/2012 Pain in lower limb 01/26/2012 04/19/2014 Overview: Right ankle, leg neuralgia, small fiber neuropathy. 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 10/24/2010 Intervertebral thoracic disc disorder with myelopathy, thoracic region 08/16/2009 01/28/2012 Menorrhagia 04/26/2009 04/19/2014 Submucous leiomyoma of uterus 01/21/2009 Abdominal Pain, Left Lower Quadrant 12/14/2008 01/28/2012 Nonallopathic lesion of pelv ic region, not elsewhere classified 09/23/2006 07/21/2012 Somatization disorder 09/20/2006 01/28/2012 Incomplete bladder emptying 05/07/200609/27 Thoracic or lumbosacral neuritis or radiculitis, unspecified 01/11/2006 04/19/2014 Irritable bowel 09/04/2005 01/28/2012 Flushing 06/05/2005 05/26/2012 Other malaise and fatigue 06/05/20052010 Irritable bowel syndrome 014 documented as of this encounter (statuses as of 10/09/2021) [facility] History of Past illness Narrative* Problem Noted Date Resolved Date Menorrhagia with regular cycle 12/05/2015 0 10/17/2016 Degeneration of cervical intervertebral disc 04/19/2014 Pain in thoracic spine 01/18/2013 4 Neuropathy 08/24/2012 04/19/2014 Other pain disorders related to psychological fa ctors 03/25/2012 05/26/2012 Pain in lower limb 01/26/2012 04/19/2014 Overview: Right ankle, leg neuralgia, small fiber neuropathy. 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 10/24/2010 Intervertebral thoracic disc disorder with myelopathy, thoracic region 08/16/2009 01/28/2012 Menorrhagia 04/26/2009 04/19/2014 Submucous leiomyoma of uterus 01/21/2009 Abdominal Pain, Left Lower Quadrant 12/14/2008 01/28/2012 Nonallopathic lesion of pelv ic region, not elsewhere classified 09/23/2006 07/21/2012 Somatization disorder 09/20/2006 01/28/2012 Incomplete bladder emptying 05/07/200609/27 Thoracic or lumbosacral neuritis or radiculitis, unspecified 01/11/2006 04/19/2014 Irritable bowel 09/04/2005 01/28/2012 Flushing 06/05/2005 05/26/2012 Other malaise and fatigue 06/05/20052010 Irritable bowel syndrome 014 documented as of this encounter (statuses as of 11/04/2021) [facility] History of Past illness Narrative* Problem Noted Date Resolved Date Menorrhagia with regular cycle 12/05/2015 0 10/17/2016 Degeneration of cervical intervertebral disc 04/19/2014 Pain in thoracic spine 01/18/2013 4 Neuropathy 08/24/2012 04/19/2014 Other pain disorders related to psychological fa ctors 03/25/2012 05/26/2012 Pain in lower limb 01/26/2012 04/19/2014 Overview: Right ankle, leg neuralgia, small fiber neuropathy. 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 10/24/2010 Intervertebral thoracic disc disorder with myelopathy, thoracic region 08/16/2009 01/28/2012 Menorrhagia 04/26/2009 04/19/2014 Submucous leiomyoma of uterus 01/21/2009 Abdominal Pain, Left Lower Quadrant 12/14/2008 01/28/2012 Nonallopathic lesion of pelv ic region, not elsewhere classified 09/23/2006 07/21/2012 Somatization disorder 09/20/2006 01/28/2012 Incomplete bladder emptying 05/07/200609/27 Thoracic or lumbosacral neuritis or radiculitis, unspecified 01/11/2006 04/19/2014 Irritable bowel 09/04/2005 01/28/2012 Flushing 06/05/2005 05/26/2012 Other malaise and fatigue 06/05/20052010 Irritable bowel syndrome 014 documented as of this encounter (statuses as of 11/05/2021) [facility] History of Past illness Narrative* Problem Noted Date Resolved Date Menorrhagia with regular cycle 12/05/2015 0 10/17/2016 Degeneration of cervical intervertebral disc 04/19/2014 Pain in thoracic spine 01/18/2013 4 Neuropathy 08/24/2012 04/19/2014 Other pain disorders related to psychological fa ctors 03/25/2012 05/26/2012 Pain in lower limb 01/26/2012 04/19/2014 Overview: Right ankle, leg neuralgia, small fiber neuropathy. 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 10/24/2010 Intervertebral thoracic disc disorder with myelopathy, thoracic region 08/16/2009 01/28/2012 Menorrhagia 04/26/2009 04/19/2014 Submucous leiomyoma of uterus 01/21/2009 Abdominal Pain, Left Lower Quadrant 12/14/2008 01/28/2012 Nonallopathic lesion of pelv ic region, not elsewhere classified 09/23/2006 07/21/2012 Somatization disorder 09/20/2006 01/28/2012 Incomplete bladder emptying 05/07/200609/27 Thoracic or lumbosacral neuritis or radiculitis, unspecified 01/11/2006 04/19/2014 Irritable bowel 09/04/2005 01/28/2012 Flushing 06/05/2005 05/26/2012 Other malaise and fatigue 06/05/20052010 Irritable bowel syndrome 014 documented as of this encounter (statuses as of 11/29/2021) [facility] History of Past illness Narrative* Problem Noted Date Resolved Date Menorrhagia with regular cycle 12/05/2015 0 10/17/2016 Degeneration of cervical intervertebral disc 04/19/2014 Pain in thoracic spine 01/18/2013 4 Neuropathy 08/24/2012 04/19/2014 Other pain disorders related to psychological fa ctors 03/25/2012 05/26/2012 Pain in lower limb 01/26/2012 04/19/2014 Overview: Right ankle, leg neuralgia, small fiber neuropathy. 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 10/24/2010 Intervertebral thoracic disc disorder with myelopathy, thoracic region 08/16/2009 01/28/2012 Menorrhagia 04/26/2009 04/19/2014 Submucous leiomyoma of uterus 01/21/2009 Abdominal Pain, Left Lower Quadrant 12/14/2008 01/28/2012 Nonallopathic lesion of pelv ic region, not elsewhere classified 09/23/2006 07/21/2012 Somatization disorder 09/20/2006 01/28/2012 Incomplete bladder emptying 05/07/200609/27 Thoracic or lumbosacral neuritis or radiculitis, unspecified 01/11/2006 04/19/2014 Irritable bowel 09/04/2005 01/28/2012 Flushing 06/05/2005 05/26/2012 Other malaise and fatigue 06/05/20052010 Irritable bowel syndrome 014 documented as of this encounter (statuses as of 04/07/2022) [facility] History of Past illness Narrative* Problem Noted Date Resolved Date Menorrhagia with regular cycle 12/05/2015 0 10/17/2016 Degeneration of cervical intervertebral disc 04/19/2014 Pain in thoracic spine 01/18/2013 4 Neuropathy 08/24/2012 04/19/2014 Other pain disorders related to psychological fa ctors 03/25/2012 05/26/2012 Pain in lower limb 01/26/2012 04/19/2014 Overview: Right ankle, leg neuralgia, small fiber neuropathy. 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 10/24/2010 Intervertebral thoracic disc disorder with myelopathy, thoracic region 08/16/2009 01/28/2012 Menorrhagia 04/26/2009 04/19/2014 Submucous leiomyoma of uterus 01/21/2009 Abdominal Pain, Left Lower Quadrant 12/14/2008 01/28/2012 Nonallopathic lesion of pelv ic region, not elsewhere classified 09/23/2006 07/21/2012 Somatization disorder 09/20/2006 01/28/2012 Incomplete bladder emptying 05/07/200609/27 Thoracic or lumbosacral neuritis or radiculitis, unspecified 01/11/2006 04/19/2014 Irritable bowel 09/04/2005 01/28/2012 Flushing 06/05/2005 05/26/2012 Other malaise and fatigue 06/05/20052010 Irritable bowel syndrome 014 documented as of this encounter (statuses as of 04/16/2022) [facility] History of Past illness Narrative* Problem Noted Date Resolved Date Menorrhagia with regular cycle 12/05/2015 0 10/17/2016 Degeneration of cervical intervertebral disc 04/19/2014 Pain in thoracic spine 01/18/2013 4 Neuropathy 08/24/2012 04/19/2014 Other pain disorders related to psychological fa ctors 03/25/2012 05/26/2012 Pain in lower limb 01/26/2012 04/19/2014 Overview: Right ankle, leg neuralgia, small fiber neuropathy. 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 10/24/2010 Intervertebral thoracic disc disorder with myelopathy, thoracic region 08/16/2009 01/28/2012 Menorrhagia 04/26/2009 04/19/2014 Submucous leiomyoma of uterus 01/21/2009 Abdominal Pain, Left Lower Quadrant 12/14/2008 01/28/2012 Nonallopathic lesion of pelv ic region, not elsewhere classified 09/23/2006 07/21/2012 Somatization disorder 09/20/2006 01/28/2012 Incomplete bladder emptying 05/07/200609/27 Thoracic or lumbosacral neuritis or radiculitis, unspecified 01/11/2006 04/19/2014 Irritable bowel 09/04/2005 01/28/2012 Flushing 06/05/2005 05/26/2012 Other malaise and fatigue 06/05/20052010 Irritable bowel syndrome 014 documented as of this encounter (statuses as of 04/21/2022) [facility] History of Past illness Narrative* Problem Noted Date Resolved Date Menorrhagia with regular cycle 12/05/2015 0 10/17/2016 Degeneration of cervical intervertebral disc 04/19/2014 Pain in thoracic spine 01/18/2013 4 Neuropathy 08/24/2012 04/19/2014 Other pain disorders related to psychological fa ctors 03/25/2012 05/26/2012 Pain in lower limb 01/26/2012 04/19/2014 Overview: Right ankle, leg neuralgia, small fiber neuropathy. 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 10/24/2010 Intervertebral thoracic disc disorder with myelopathy, thoracic region 08/16/2009 01/28/2012 Menorrhagia 04/26/2009 04/19/2014 Submucous leiomyoma of uterus 01/21/2009 Abdominal Pain, Left Lower Quadrant 12/14/2008 01/28/2012 Nonallopathic lesion of pelv ic region, not elsewhere classified 09/23/2006 07/21/2012 Somatization disorder 09/20/2006 01/28/2012 Incomplete bladder emptying 05/07/200609/27 Thoracic or lumbosacral neuritis or radiculitis, unspecified 01/11/2006 04/19/2014 Irritable bowel 09/04/2005 01/28/2012 Flushing 06/05/2005 05/26/2012 Other malaise and fatigue 06/05/20052010 Irritable bowel syndrome 014 documented as of this encounter (statuses as of 05/08/2022) [facility] History of Past illness Narrative* Problem Noted Date Resolved Date Menorrhagia with regular cycle 12/05/2015 0 10/17/2016 Degeneration of cervical intervertebral disc 04/19/2014 Pain in thoracic spine 01/18/2013 4 Neuropathy 08/24/2012 04/19/2014 Other pain disorders related to psychological fa ctors 03/25/2012 05/26/2012 Pain in lower limb 01/26/2012 04/19/2014 Overview: Right ankle, leg neuralgia, small fiber neuropathy. 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 10/24/2010 Intervertebral thoracic disc disorder with myelopathy, thoracic region 08/16/2009 01/28/2012 Menorrhagia 04/26/2009 04/19/2014 Submucous leiomyoma of uterus 01/21/2009 Abdominal Pain, Left Lower Quadrant 12/14/2008 01/28/2012 Nonallopathic lesion of pelv ic region, not elsewhere classified 09/23/2006 07/21/2012 Somatization disorder 09/20/2006 01/28/2012 Incomplete bladder emptying 05/07/200609/27 Thoracic or lumbosacral neuritis or radiculitis, unspecified 01/11/2006 04/19/2014 Irritable bowel 09/04/2005 01/28/2012 Flushing 06/05/2005 05/26/2012 Other malaise and fatigue 06/05/20052010 Irritable bowel syndrome 014 documented as of this encounter (statuses as of 05/08/2022) [facility] of Past illness Narrative* Problem Noted Date Resolved Date Menorrhagia with regular cycle 12/05/2015 0 10/17/2016 Degeneration of cervical intervertebral disc 04/19/2014 Pain in thoracic spine 01/18/2013 4 Neuropathy 08/24/2012 04/19/2014 Other pain disorders related to psychological fa ctors 03/25/2012 05/26/2012 Pain in lower limb 01/26/2012 04/19/2014 Overview: Right ankle, leg neuralgia, small fiber neuropathy. 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 10/24/2010 Intervertebral thoracic disc disorder with myelopathy, thoracic region 08/16/2009 01/28/2012 Menorrhagia 04/26/2009 04/19/2014 Submucous leiomyoma of uterus 01/21/2009 Abdominal Pain, Left Lower Quadrant 12/14/2008 01/28/2012 Nonallopathic lesion of pelv ic region, not elsewhere classified 09/23/2006 07/21/2012 Somatization disorder 09/20/2006 01/28/2012 Incomplete bladder emptying 05/07/200609/27 Thoracic or lumbosacral neuritis or radiculitis, unspecified 01/11/2006 04/19/2014 Irritable bowel 09/04/2005 01/28/2012 Flushing 06/05/2005 05/26/2012 Other malaise and fatigue 06/05/20052010 Irritable bowel syndrome 014 documented as of this encounter (statuses as of 07/06/2022) [facility] Past illness Narrative* Problem Noted Date Resolved Date Menorrhagia with regular cycle 12/05/2015 0 10/17/2016 Degeneration of cervical intervertebral disc 04/19/2014 Pain in thoracic spine 01/18/2013 4 Neuropathy 08/24/2012 04/19/2014 Other pain disorders related to psychological fa ctors 03/25/2012 05/26/2012 Pain in lower limb 01/26/2012 04/19/2014 Overview: Right ankle, leg neuralgia, small fiber neuropathy. 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 10/24/2010 Intervertebral thoracic disc disorder with myelopathy, thoracic region 08/16/2009 01/28/2012 Menorrhagia 04/26/2009 04/19/2014 Submucous leiomyoma of uterus 01/21/2009 Abdominal Pain, Left Lower Quadrant 12/14/2008 01/28/2012 Nonallopathic lesion of pelv ic region, not elsewhere classified 09/23/2006 07/21/2012 Somatization disorder 09/20/2006 01/28/2012 Incomplete bladder emptying 05/07/200609/27 Thoracic or lumbosacral neuritis or radiculitis, unspecified 01/11/2006 04/19/2014 Irritable bowel 09/04/2005 01/28/2012 Flushing 06/05/2005 05/26/2012 Other malaise and fatigue 06/05/20052010 Irritable bowel syndrome 014 documented as of this encounter (statuses as of 07/07/2022) [facility] Past illness Narrative* Problem Noted Date Resolved Date Menorrhagia with regular cycle 12/05/2015 0 10/17/2016 Degeneration of cervical intervertebral disc 04/19/2014 Pain in thoracic spine 01/18/2013 4 Neuropathy 08/24/2012 04/19/2014 Other pain disorders related to psychological fa ctors 03/25/2012 05/26/2012 Pain in lower limb 01/26/2012 04/19/2014 Overview: Right ankle, leg neuralgia, small fiber neuropathy. 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 10/24/2010 Intervertebral thoracic disc disorder with myelopathy, thoracic region 08/16/2009 01/28/2012 Menorrhagia 04/26/2009 04/19/2014 Submucous leiomyoma of uterus 01/21/2009 Abdominal Pain, Left Lower Quadrant 12/14/2008 01/28/2012 Nonallopathic lesion of pelv ic region, not elsewhere classified 09/23/2006 07/21/2012 Somatization disorder 09/20/2006 01/28/2012 Incomplete bladder emptying 05/07/200609/27 Thoracic or lumbosacral neuritis or radiculitis, unspecified 01/11/2006 04/19/2014 Irritable bowel 09/04/2005 01/28/2012 Flushing 06/05/2005 05/26/2012 Other malaise and fatigue 06/05/20052010 Irritable bowel syndrome 014 documented as of this encounter (statuses as of 07/15/2022) [facility] Past illness Narrative* Problem Noted Date Resolved Date Menorrhagia with regular cycle 12/05/2015 0 10/17/2016 Degeneration of cervical intervertebral disc 04/19/2014 Pain in thoracic spine 01/18/2013 4 Neuropathy 08/24/2012 04/19/2014 Other pain disorders related to psychological fa ctors 03/25/2012 05/26/2012 Pain in lower limb 01/26/2012 04/19/2014 Overview: Right ankle, leg neuralgia, small fiber neuropathy. 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 10/24/2010 Intervertebral thoracic disc disorder with myelopathy, thoracic region 08/16/2009 01/28/2012 Menorrhagia 04/26/2009 04/19/2014 Submucous leiomyoma of uterus 01/21/2009 Abdominal Pain, Left Lower Quadrant 12/14/2008 01/28/2012 Nonallopathic lesion of pelv ic region, not elsewhere classified 09/23/2006 07/21/2012 Somatization disorder 09/20/2006 01/28/2012 Incomplete bladder emptying 05/07/200609/27 Thoracic or lumbosacral neuritis or radiculitis, unspecified 01/11/2006 04/19/2014 Irritable bowel 09/04/2005 01/28/2012 Flushing 06/05/2005 05/26/2012 Other malaise and fatigue 06/05/20052010 Irritable bowel syndrome 014 documented as of this encounter (statuses as of 07/21/2022) [facility] History of Past illness Narrative* Problem Noted Date Resolved Date Menorrhagia with regular cycle 12/05/2015 0 10/17/2016 Degeneration of cervical intervertebral disc 04/19/2014 Pain in thoracic spine 01/18/2013 4 Neuropathy 08/24/2012 04/19/2014 Other pain disorders related to psychological fa ctors 03/25/2012 05/26/2012 Pain in lower limb 01/26/2012 04/19/2014 Overview: Right ankle, leg neuralgia, small fiber neuropathy. 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 10/24/2010 Intervertebral thoracic disc disorder with myelopathy, thoracic region 08/16/2009 01/28/2012 Menorrhagia 04/26/2009 04/19/2014 Submucous leiomyoma of uterus 01/21/2009 Abdominal Pain, Left Lower Quadrant 12/14/2008 01/28/2012 Nonallopathic lesion of pelv ic region, not elsewhere classified 09/23/2006 07/21/2012 Somatization disorder 09/20/2006 01/28/2012 Incomplete bladder emptying 05/07/200609/27 Thoracic or lumbosacral neuritis or radiculitis, unspecified 01/11/2006 04/19/2014 Irritable bowel 09/04/2005 01/28/2012 Flushing 06/05/2005 05/26/2012 Other malaise and fatigue 06/05/20052010 Irritable bowel syndrome 014 documented as of this encounter (statuses as of 09/18/2022) [facility] History of Past illness Narrative* Problem Noted Date Resolved Date Menorrhagia with regular cycle 12/05/2015 0 10/17/2016 Degeneration of cervical intervertebral disc 04/19/2014 Pain in thoracic spine 01/18/2013 4 Neuropathy 08/24/2012 04/19/2014 Other pain disorders related to psychological fa ctors 03/25/2012 05/26/2012 Pain in lower limb 01/26/2012 04/19/2014 Overview: Right ankle, leg neuralgia, small fiber neuropathy. 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 10/24/2010 Intervertebral thoracic disc disorder with myelopathy, thoracic region 08/16/2009 01/28/2012 Menorrhagia 04/26/2009 04/19/2014 Submucous leiomyoma of uterus 01/21/2009 Abdominal Pain, Left Lower Quadrant 12/14/2008 01/28/2012 Nonallopathic lesion of pelv ic region, not elsewhere classified 09/23/2006 07/21/2012 Somatization disorder 09/20/2006 01/28/2012 Incomplete bladder emptying 05/07/200609/27 Thoracic or lumbosacral neuritis or radiculitis, unspecified 01/11/2006 04/19/2014 Irritable bowel 09/04/2005 01/28/2012 Flushing 06/05/2005 05/26/2012 Other malaise and fatigue 06/05/20052010 Irritable bowel syndrome 014 documented as of this encounter (statuses as of 09/24/2022) [facility] History of Past illness Narrative* Problem Noted Date Diagnosed Date Resolved Date Menorrhagia with regular cycle 12/05/2015 10/17/2016 Degeneration of cervical intervertebral disc 3 04/19/2014 Pain in thoracic spine 01/18/201304/19 Neuropathy 08/24/2012 04/19/2014 Other pain disorders related to psychological factors 03/25/2012 05/26/2012 Pain in lower limb 01/26/2012 4 Overview: Right ankle, leg neuralgia, small fiber neuropathy. 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/24/2010 Intervertebral thoracic disc disorder with myelopathy, thoracic region 08/16/2009 01/28/2012 Menorrhagia 04/26/2009 04/19/2014 Submucous leiomyoma of uterus 01/21/2009 10/24/2010 Abdominal Pain, Left Lower Quadrant 12/14/2008 01/28/2012 Nonallopathic lesion of pelv ic region, not elsewhere classified 09/23/2006 07/21/2012 Somatization disorder 09/20/20062011 Incomplete bladder emptying 05/07/2006 10/24/2010 Thoracic or lumbosacral neur itis or radiculitis, unspecified 01/11/2006 04/19/2014 Irritable bowel 09/04/2005 01/28/2012 Flushing 06/05/2005 05/26/2012 Other malaise and fatigue 06/05/2005 Irritable bowel syndrome documented as of this encounter (statuses as of 05/02/2023) [facility] History of Past illness Narrative* Problem Noted Date Diagnosed Date Resolved Date Menorrhagia with regular cycle 12/05/2015 10/17/2016 Degeneration of cervical intervertebral disc 3 04/19/2014 Pain in thoracic spine 01/18/201304/19 Neuropathy 08/24/2012 04/19/2014 Other pain disorders related to psychological factors 03/25/2012 05/26/2012 Pain in lower limb 01/26/2012 4 Overview: Right ankle, leg neuralgia, small fiber neuropathy. 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/24/2010 Intervertebral thoracic disc disorder with myelopathy, thoracic region 08/16/2009 01/28/2012 Menorrhagia 04/26/2009 04/19/2014 Submucous leiomyoma of uterus 01/21/2009 10/24/2010 Abdominal Pain, Left Lower Quadrant 12/14/2008 01/28/2012 Nonallopathic lesion of pelv ic region, not elsewhere classified 09/23/2006 07/21/2012 Somatization disorder 09/20/20062011 Incomplete bladder emptying 05/07/2006 10/24/2010 Thoracic or lumbosacral neur itis or radiculitis, unspecified 01/11/2006 04/19/2014 Irritable bowel 09/04/2005 01/28/2012 Flushing 06/05/2005 05/26/2012 Other malaise and fatigue 06/05/2005 Irritable bowel syndrome documented as of this encounter (statuses as of 06/13/2023) [facility] Small intestinal bacterial overgrowth (SIBO)- Primary [facility] Diagnosis Small intestinal bacterial [facility] (SIBO) [facility] Bloating Flatulence, eructation, and gas pain [facility] Diagnosis Dyspepsia- Primary Dyspepsia and other specified disorders of function of stomach Abdominal bloating Flatulence, eructation, and gas pain [facility] Diagnosis Irritable bowel syndrome with constipation- Primary Irritable bowel syndrome Constipation, unspecified constipation type Anxiety Anxiety state, unspecified Poor sleep Hair loss Alopecia, unspecified Arthralgia, unspecified joint [facility] Diagnosis Constipation, unspecified constipation type- Primary Anxiety Anxiety state, unspecified Irritable bowel syndrome with constipation Irritable bowel syndrome Dietary counseling and surveillance Dietary surveillance and counseling [facility] Diagnosis Small intestinal bacterial overgrowth (SIBO)- Primary documented in this encounter [facility] note* Diagnosis Encounter for gynecological examination (general) (routine) without abnormal findings- Primary Dense breast tissue Special screening for malignant neoplasms, colon documented in this encounter [facility] note* Diagnosis Encounter for screening mammogram for malignant neoplasm of breast Other screening mammogram documented in this encounter [facility] note* Diagnosis Dyspepsia- Primary Dyspepsia and other specified disorders of function of stomach Loose stools Abnormal feces documented in this encounter [facility] for referral (narrative)* Outpatient Procedure (Routine) - Pending Review Specialty Diagnoses / Procedures Referred By Artie yuen Referred To Contact [facility] Diagnoses Dyspepsia Abdominal bloating Procedures EGD DIAGNOSTIC ESOPHAGOGASTRODUODENOS COPY TRANS[place] [address] [place] [address] [facility] [place] [id number] Referral ID Status Reason Start Date Expiration Date Visits Requested Visits Authorized [id number] Pending Review OON/Self Pay Override 11/26/2021 02/24/2022 1 1 [facility] for referral (narrative)* Outpatient Procedure (Routine) - Pending Review Specialty Diagnoses / Procedures Referred By Artie yuen Referred To Contact [facility] Diagnoses Special screening for malignant neoplasms, colon Procedures COLONOSCOPY SCREENING COLONOSCOPY FLX DX W/COLLJ SPEC WHEN PFRMD Nini Harkins MD [address] [place] [id number] [place] [phone] Referral ID Status Reason Start Date Expiration Date Visits Requested Visits Authorized [id number] Pending Review Auto-Generat ed Referral 09/17/2022 09/18/2023 1 1 * Diagnostic Procedure Only (Routine) - Pending Review Specialty Diagnoses / Procedures Referred By Artie yuen Referred To Contact [facility] Diagnoses Dense breast tissue Procedures DIAN SCREENING W PRASANNA SCREENING DIGITAL BREAST TOMOSYNTHESIS BI SCREENING MAMMOGRAPHY BI 2-VIEW BREAST INC CAD Nini Harkins MD [address] [place] [address] [facility] [address] [place] [address] Referral ID Status Reason Start Date Expiration Date Visits Requested Visits Authorized [id number] Pending Review Auto-Generat ed Referral 09/17/2022 10/17/2023 1 1 [facility] for referral (narrative)* Diagnostic Procedure Only (Routine) - Closed Specialty Diagnoses / Procedures Referred By Artie yuen Referred To Contact [facility] Diagnoses Encounter for screening mammogram for malignant neoplasm of breast Procedures DIAN SCREENING W PRASANNA SCREENING DIGITAL BREAST TOMOSYNTHESIS BI SCREENING MAMMOGRAPHY BI 2-VIEW BREAST INC CAD Nini Harkins MD [address] [place] [address] [facility] [address] [place] [address] Referral ID Status Reason Start Date Expiration Date V isits Requested Visits Authorized [id number] Closed Auto-Generate d Referral 09/15/2021 10/15/2022 1 1 [facility] for visit Narrative* Diagnostic Procedure Only (Routine) - Closed Specialty Diagnoses / Procedures Referred By Artie yuen Referred To Contact [facility] Diagnoses Encounter for screening mammogram for malignant neoplasm of breast Procedures DIAN SCREENING W PRASANNA SCREENING DIGITAL BREAST TOMOSYNTHESIS BI SCREENING MAMMOGRAPHY BI 2-VIEW BREAST INC CAD Nini Harkins MD [address] [place] [address] [facility] [address] [place] [address] Referral ID Status Reason Start Date Expiration Date V isits Requested Visits Authorized [id number] Closed Auto-Generate d Referral 09/15/2021 10/15/2022 1 1 [facility] Advance Directives No Advanced Directives Records FoundDocuments on File Type Date 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 Advance Directive(s) Advance Directive(s) 12/10/2015 6:09 AM Advance Directive(s) 12/05/2015 11:12 AM Documents on File Type Date Recorded 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 Advance Directive(s) Advance Directive(s) 12/10/2015 6:09 AM Advance Directive(s) 12/05/2015 11:12 AM Summary Purpose Family History No Family History Records FoundNo Family History Records Found Additional Source Comments Source Comments (unrecognize d section and content) In the event this informatio n is protected by the Federal Confidentiality of Alcohol and Drug Abuse Patient Records regulations: The Federal rules restrict any use of the information to criminally investigate or prosecute any alcohol or drug abuse patient.[facility] the event this information is protected by the Federal Confidentiality of Alcohol and Drug Abuse Patient Records regulations: The Federal rules restrict any use of the information to criminally investigate or prosecute any alcohol or drug abuse patient.[facility] the event this information is protected by the Federal Confidentiality of Alcohol and Drug Abuse Patient Records regulations: The Federal rules restrict any use of the information to criminally investigate or prosecute any alcohol or drug abuse patient.[facility] the event this information is protected by the Federal Confidentiality of Alcohol and Drug Abuse Patient Records regulations: The Federal rules restrict any use of the information to criminally investigate or prosecute any alcohol or drug abuse patient.[facility] the event this information is protected by the Federal Confidentiality of Alcohol and Drug Abuse Patient Records regulations: The Federal rules restrict any use of the information to criminally investigate or prosecute any alcohol or drug abuse patient.[facility] the event this information is protected by the Federal Confidentiality of Alcohol and Drug Abuse Patient Records regulations: The Federal rules restrict any use of the information to criminally investigate or prosecute any alcohol or drug abuse patient.[facility] the event this information is protected by the Federal Confidentiality of Alcohol and Drug Abuse Patient Records regulations: The Federal rules restrict any use of the information to criminally investigate or prosecute any alcohol or drug abuse patient.[facility] the event this information is protected by the Federal Confidentiality of Alcohol and Drug Abuse Patient Records regulations: The Federal rules restrict any use of the information to criminally investigate or prosecute any alcohol or drug abuse patient.[facility] the event this information is protected by the Federal Confidentiality of Alcohol and Drug Abuse Patient Records regulations: The Federal rules restrict any use of the information to criminally investigate or prosecute any alcohol or drug abuse patient.[facility] the event this information is protected by the Federal Confidentiality of Alcohol and Drug Abuse Patient Records regulations: The Federal rules restrict any use of the information to criminally investigate or prosecute any alcohol or drug abuse patient.[facility] the event this information is protected by the Federal Confidentiality of Alcohol and Drug Abuse Patient Records regulations: The Federal rules restrict any use of the information to criminally investigate or prosecute any alcohol or drug abuse patient.[facility] the event this information is protected by the Federal Confidentiality of Alcohol and Drug Abuse Patient Records regulations: The Federal rules restrict any use of the information to criminally investigate or prosecute any alcohol or drug abuse patient.[facility] the event this information is protected by the Federal Confidentiality of Alcohol and Drug Abuse Patient Records regulations: The Federal rules restrict any use of the information to criminally investigate or prosecute any alcohol or drug abuse patient.[facility] the event this information is protected by the Federal Confidentiality of Alcohol and Drug Abuse Patient Records regulations: The Federal rules restrict any use of the information to criminally investigate or prosecute any alcohol or drug abuse patient.[facility] the event this information is protected by the Federal Confidentiality of Alcohol and Drug Abuse Patient Records regulations: The Federal rules restrict any use of the information to criminally investigate or prosecute any alcohol or drug abuse patient.[facility] the event this information is protected by the Federal Confidentiality of Alcohol and Drug Abuse Patient Records regulations: The Federal rules restrict any use of the information to criminally investigate or prosecute any alcohol or drug abuse patient.[facility] the event this information is protected by the Federal Confidentiality of Alcohol and Drug Abuse Patient Records regulations: The Federal rules restrict any use of the information to criminally investigate or prosecute any alcohol or drug abuse patient.[facility] the event this information is protected by the Federal Confidentiality of Alcohol and Drug Abuse Patient Records regulations: The Federal rules restrict any use of the information to criminally investigate or prosecute any alcohol or drug abuse patient.[facility] the event this information is protected by the Federal Confidentiality of Alcohol and Drug Abuse Patient Records regulations: The Federal rules restrict any use of the information to criminally investigate or prosecute any alcohol or drug abuse patient.[facility] the event this information is protected by the Federal Confidentiality of Alcohol and Drug Abuse Patient Records regulations: The Federal rules restrict any use of the information to criminally investigate or prosecute any alcohol or drug abuse patient.[facility] Reason for Visit (unrecogniz ed section and content) Reason Comments Insurance Authorization Reason Comments Breath Hydrogen Test Reason Comments Results Reason Comments Established Patient Reason Onset Date Comments Refill Request 05/08/2022 Reason Comments Well Woman Specialty Diagnoses / Procedures Referred By Artie yuen Referred To Contact [employer] [facility] Diagnoses Wellness examination annual Procedures OFFICE/OUTPATIENT ESTABLISHED MOD MDM 30-39 MIN EST WHI ANNUAL PATIENT Nini Harkins MD [address] [place] [address] Nini Harkins MD [address] [place] [address] Referral ID Status Reason Start Date Expiration Date Visits Re quested Visits Authorized [id number] Closed 09/17/2022 12/16/2022 1 1 Reason Comments Diarrhea Acid reflux, upset s tomach x10 days, + covid 12/7 Care Teams (unrecognized sec tion and content) 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, [place] [id number] PCP - General Internal Medicine 10/24/10 INFORMATION SOURCE (unrecogn ized section and content) DATE CREATED AUTHOR [facility]S [facility] 06/25/2023 [facility] FOR RECORDS PERTAINING TO PATIENTS WHO ARE OR HAVE BEEN ENROLLED IN A CHEMICAL DEPENDENCY/SUBSTANCEABUSE PROGRAM, SOME INFORMATION MAY BE OMITTED. This clinical summary was aggregated from multiple sources. Caution should be exercised in using it in the provision of clinical care. This summary normalizes information from multiple sources, and as a consequence, information in this document may materially change the coding, format and clinical context of patient data. In addition, data may be omitted in some cases. CLINICAL DECISIONS SHOULD BE BASED ON THE PRIMARY CLINICAL RECORDS. [employer] [facility]. provides no warranty or guarantee of the accuracy or completeness of information in this document.
[2023-06-29 16:05] LABS: Anion Gap 7 (5-15); BUN 15 mg/dL (7-18); BUN/Creat Ratio 22.5 RATIO (10-20); Calcium,Total 8.3 mg/dL (8.5-10.1); Chloride 96 mmol/L (98-107); Creatinine, Serum 0.67 mg/dL (0.55-1.02); EST Glomerular Filtration Rate 97 mL/min (>60); Est Glom Filt Rate - Afr Amer 117 mL/min (>60); Glucose 96 mg/dL (74-106); Potassium 4.2 mmol/L (3.5-5.1); Sodium Level 132 mmol/L (136-145)
== END | disposition home or self-care (01) ==
LOC: MFPLAB 14:08
PROVIDERS: PCP Family Medicine; Visit Provider Nurse Practitioner Family
DX: E87.8 Other disorders of electrolyte and fluid balance, not elsewhere classified (principal)
CPT/HCPCS: 36415; 80048

== ENCOUNTER → 2023-07-02 | Outpatient (CLI) | payer OTHER, SELFPAY ==
--- OUTSIDE RECORDS SUMMARY | 2023-07-02 16:58 | XMS RPT_ITS | CCD ---
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 LAWYER Diagnoses Wellness examination annual Procedures OFFICE/OUTPATIENT ESTABLISHED MOD MDM 30-39 MIN EST WHI ANNUAL PATIENT Nini Harkins MD [address] [place] [address] Nini Harkins MD [address] [place] [address] Referral ID Status Reason Start Date Expiration Date Visits Re quested Visits Authorized [id number] Closed 09/17/2022 12/16/2022 1 1 Reason Comments Diarrhea Acid reflux, upset s tomach x10 days, + covid 12/7 Care Teams (unrecognized sec tion and content) Advanced Practice Nurse Psychotherapist Relationship Specialty Start Date End Date Melvin Lynn MD [address] [place] [address] PCP - General Internal Medicine 10/24/10 Advanced Practice Nurse Psychotherapist Relationship Specialty Start Date End Date Melvin Lynn MD [address] [facility] [place] [address] PCP - General Internal Medicine 10/24/10 Advanced Practice Nurse Psychotherapist Relationship Specialty Start Date End Date Melvin Lynn MD [address] [facility] [place] [address] PCP - General Internal Medicine 10/24/10 Advanced Practice Nurse Psychotherapist Relationship Specialty Start Date End Date Melvin Lynn MD [address] [facility] [place] [address] PCP - General Internal Medicine 10/24/10 Advanced Practice Nurse Psychotherapist Relationship Specialty Start Date End Date Melvin Lynn MD [address] [facility] [place] [address] PCP - General Internal Medicine 10/24/10 Advanced Practice Nurse Psychotherapist Relationship Specialty Start Date End Date Melvin Lynn MD [address] [facility] [place] [address] PCP - General Internal Medicine 10/24/10 Advanced Practice Nurse Psychotherapist Relationship Specialty Start Date End Date Melvin Lynn MD [address] [facility] [place] [address] PCP - General Internal Medicine 10/24/10 Advanced Practice Nurse Psychotherapist Relationship Specialty Start Date End Date Melvin Lynn MD [address] [facility] [place] [address] PCP - General Internal Medicine 10/24/10 Advanced Practice Nurse Psychotherapist Relationship Specialty Start Date End Date Melvin Lynn MD [address] [facility] [place] [address] PCP - General Internal Medicine 10/24/10 Advanced Practice Nurse Psychotherapist Relationship Specialty Start Date End Date Melvin Lynn MD [address] [facility] [place] [address] PCP - General Internal Medicine 10/24/10 Advanced Practice Nurse Psychotherapist Relationship Specialty Start Date End Date Melvin Lynn MD [address] [facility] [place], [place] [address] PCP - General Internal Medicine 10/24/10 Advanced Practice Nurse Psychotherapist Relationship Specialty Start Date End Date Melvin Lynn MD [address] [facility] [place] [address] PCP - General Internal Medicine 10/24/10 Advanced Practice Nurse Psychotherapist Relationship Specialty Start Date End Date Melvin Lynn MD [address] [facility] [place], [place] [address] PCP - General Internal Medicine 10/24/10 Advanced Practice Nurse Psychotherapist Relationship Specialty Start Date End Date Melvin Lynn MD [address] [facility] [place], [place] [id number] PCP - General Internal Medicine 10/24/10 INFORMATION SOURCE (unrecogn ized section and content) DATE CREATED AUTHOR [facility]23 [facility] FOR RECORDS PERTAINING TO PATIENTS WHO ARE [...] BE BASED ON THE PRIMARY CLINICAL RECORDS. [facility]. provides no warranty or guarantee of the accuracy or completeness of information in this document.
[2023-07-02 18:26] LABS: Vitamin D,25 Hydroxy 50.2 ng/mL
[2023-07-02 18:35] LABS: Thyroid Stim Hormone (TSH) 3.41 uIU/mL (0.358-3.74)
== END | disposition home or self-care (01) ==
PROVIDERS: PCP Family Medicine; Referring Provider Family Medicine; Visit Provider Family Medicine
DX: R53.83 Other fatigue (principal); E55.9 Vitamin D deficiency, unspecified
CPT/HCPCS: 36415; 82306; 84443

== ENCOUNTER → 2023-12-08 | Outpatient (CLI) | payer OTHER, SELFPAY ==
--- NOTE | 2023-12-08 12:12 | NEURO ---
NCS and/or EMG Patient Report Ordering Doctor: Jeanmarie Garcia DATE OF SERVICE: 12/08/23 Aranza presents with complaints of right ankle pain. She reports rolling her right ankle in September 2023. She now feels a pinching sensation on the medial aspect of the foot with intermittent tingling. Electrodiagnostic findings: Right peroneal motor nerve demonstrates normal distal latency and amplitude with normal conduction velocity. No significant drop in conduction noted across the fibular head. Right tibial motor nerve demonstrates normal distal latency and amplitude with normal conduction velocity. Prolonged right sural latency is noted. Normal right superficial peroneal response. Needle EMG testing was performed in the right lower limb. All muscles tested, including the right lumbar paraspinals, showed no evidence of denervation with normal motor unit action potentials. Electrodiagnostic impression: This is an abnormal study in the right lower limb 1. 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 This, however, may not be related to the patient's symptoms. 2. There is no electrodiagnostic evidence for peroneal neuropathy and no evidence of conduction block at the fibular head. 3. There is no electrodiagnostic evidence for tibial neuropathy and no electrodiagnostic evidence for tarsal tunnel syndrome. 4. There is no electrodiagnostic evidence for lumbosacral radiculopathy. Multi Select Codes Neurology Neurology Interp Codes: 05470-53 Musc test done w/n test comp (interp) and 10864-88 Nrv cndj tst 5-6 studies (interp)
== END | disposition home or self-care (01) ==
LOC: PSN 08:33
PROVIDERS: PCP Family Medicine; Referring Provider Podiatrist Foot & Ankle Surgery; Visit Provider Podiatrist Foot & Ankle Surgery
DX: M79.604 Pain in right leg (principal); S94.21XA Injury of deep peroneal nerve at ankle and foot level, right leg, initial encounter
CPT/HCPCS: 95886; 95909

== ENCOUNTER 2023-12-11 19:32 | Emergency (ER) | payer OTHER, SELFPAY ==
[2023-12-11 19:33] VITALS: BP 146/78; PULSE 67; RESP 15; TEMP 36.3; O2SAT 100
[2023-12-11 19:38] VITALS: BP 146/78; PULSE 67; RESP 15; TEMP 36.3; O2SAT 100
--- NOTE | 2023-12-11 20:02 | EDS_ITS ---
HPI History of Present Illness Chief Complaint: Flank Pain Informant: patient Onset/Context/Timing Onset: Days (4) Context: Gradual Onset Timing: Continuous Quality: Cramping, aching Location: Lower abdomen and lower back Worsened by: Nothing Relieved by: Nothing Narrative Narrative: Patient presents with lower abdominal pain and lower back pain that has been getting worse over the past 4 days. Patient describes it as cramping and aching. Patient is concerned that she has a urinary tract infection. Patient denies any dysuria or hematuria however. Patient does admit to some nausea but denies any vomiting. Patient denies any fevers or chills. Patient states n othing makes her pain better and nothing makes it worse. Patient denies any chest pain or shortness of breath. [facility] Medical History (Updated 12/11/23 @ 21:[address] Serafin Cameron, ) IBS (irritable bowel syndrome) Anxiety Home Medications ?Medication ?Instructions ?Recorded ?Last Taken ?Type fluoxetine 20 mg capsule 50 mg PO DAILY 09/14/16 09/13/16 History trazodone 50 mg tablet 12 mg PO QHS PRN PRN Sleep 12/25/16 Unknown History hydroxyzine pamoate 25 mg capsule 25 mg PO TID PRN Anxiety 08/07/17 Unknown History gabapentin 100 mg capsule 100 mg PO DAILY 30 days #30 caps 12/01/23 Unknown Rx Allergy/AdvReac Type Severity Reaction Status Date / Time almond Allergy DIARRHEA Verified 12/11/23 19:38 AND CRAMPING corn Allergy DIARRHEA Verified 12/11/23 19:38 AND CRAMPING wheat Allergy DIARRHEA Verified 12/11/23 19:38 AND CRAMPING cyclobenzaprine (From AdvReac Upset Verified 12/11/23 19:38 Flexeril) Stomach Surgical History (Updated 12/11/23 @ 20:[address] Serafin Cameron DO) Hx of tonsillectomy Hx of myomectomy Social History Smoking Status: Former smoker ROS ROS ED Constitutional Constitutional ED: Denies chills or fever(s) Eyes Eyes: Denies blurry vision or change in vision ENT ENT ED: Denies rhinorrhea or sore throat Cardiovascular Cardiovascular: Denies chest pain or palpitations Respiratory/Chest Respiratory/Chest: Denies cough or dyspnea Gastrointestinal Gastrointestinal: Reports nausea; Denies vomiting Genitourinary Genitourinary ED: Denies dysuria or hematuria Musculoskeletal Musculoskeletal: Reports back pain; Denies neck pain Integumentary Denies abscess or rash Neurologic Neurologic: Denies headache(s) or weakness Psychiatric Psychiatric: Reports anxiety Allergic/Immunologic Allergic/Immunologic ED: Denies mouth swelling or urticaria EXAM Physical Exam Const Vital Signs: 12/11/23 19:33 12/11/23 19:38 Temperature 97.4 F L 97.4 F L Temperature Source Temporal Temporal Pulse Rate 67 67 Respiratory Rate 15 15 Blood Pressure 146/78 H 146/78 H Blood Pressure Mean 100 100 Pulse Ox 100 100 Oxygen Delivery Method Room Air Room Air Positive well nourished and well developed General Appearance ED: well developed and NAD HEENT Reports moist mucous membranes Neck supple and no JVD Resp normal respiratory effort and clear to auscultation bilaterally Cardio regular rate and regular rhythm GI non-distended Palpation: soft and tender suprapubic; Negative for guarding or rebound tenderness present Back/Spine Back/Spine Narrative: There is mild tenderness over the lower lumbar area. There is no bony crepitance or step-off. There is no edema or ecchymosis noted. There is good range of motion. Neuro oriented x3, CN's II-XII intact bilaterally and no sensory deficits noted Sensorium / Orientation: alert Motor Exam: strength 5/5 throughout Psych mental status grossly normal Skin Skin Narrative: There is a puncture wound on the lower lumbar area where she had a recent nerve conduction study performed. There is no erythema or warmth. There is no signs of any infection. MDM MDM MDM Narrative Medical decision making narrative: Differential diagnosis includes urinary tract infection, and ovarian cyst. Urinalysis will be obtained to assess for urinary tract infection. Lab Data Attestation: I reviewed the patient's lab results. Lab results narrative: Urinalysis was reviewed. There is no evidence of urinary tract infection or hematuria. Labs: Laboratory Results - last 24 hr 12/11/23 19:47 Urine Color Yellow Urine Clarity Clear Urine pH 6.5 Ur Specific [place] 1.010 Urine Protein Negative Urine Glucose (UA) Normal Urine Ketones Negative Urine Occult Blood 25 H Urine Nitrite Negative Urine Bilirubin Negative Urine Urobilinogen Normal Ur Leukocyte Esterase Negative Urine RBC 0 SEEN Urine WBC 0 SEEN Ur Squamous Epith Cells 0 SEEN Urine Bacteria 0 SEEN Urine Mucus 0 SEEN Treatment and Re-Evaluation :: Patient was advised of her findings. Patient does not want to stay for further evaluation of her abdominal pain and back pain. Patient states she will follow- up with her primary care physician for this. Patient was advised that this could still be an ovarian cyst or other causes of pelvic pain. Patient understood and was agreeable with the plan. Patient was instructed to follow-up with her primary care physician in 3 to 5 days. All questions were answered. Discharge Plan Triage Chief Complaint: Flank Pain ED Provider: Serafin Cameron Dx/Rx/DC Orders Clinical Impression: Abdominal pain, Anxiety Instructions: ED Abdominal Pain Unkn Cause Fem Prescriptions: No Action fluoxetine 20 MG capsule 50 mg PO DAILY trazodone 50 MG tablet 12 mg PO QHS PRN PRN (Reason: Sleep) hydroxyzine pamoate 25 MG capsule 25 mg PO TID PRN (Reason: Anxiety) Patient Comments: gabapentin 100 mg capsule 100 mg PO DAILY 30 Days Qty: 30 0RF Rx Instructions: Take 1 capsule before bed daily. Primary Care Provider: Jimmie Palacios Referrals: Jimmie Palacios MD [Primary Care Provider] - 5-7 Days Print Language: Georgian Disposition Disposition: Home, Self Care
[2023-12-11 20:19] LABS: Bacteria 0 SEEN /hpf (None Seen); Mucous, Urine 0 SEEN /hpf (<or=2+); Red Blood Cells-Urine 0 SEEN /hpf (0-5); Squamous Epithelial Cells - UA 0 SEEN /hpf (5-10); White Blood Cells 0 SEEN /hpf (0-5)
[2023-12-11 20:20] LABS: Color, Urine Yellow (Yellow); Glucose, Dipstick Normal (Normal); Ketone-Dipstick Negative (Negative); Leukocyte Esterase-Dipstick Negative /ul (Negative); Nitrite-Dipstick Negative (Negative); Occult Blood-Urine 25 /ul (Negative); Protein-Dipstick Negative (Negative); Urine Bilirubin Dipstick Negative (Negative); Urine Clarity Clear (Clear); Urine Urobilinogen Normal (Normal); Urine pH 6.5 (5.0 - 8.0)
== END 2023-12-11 21:30 | disposition home or self-care (01) ==
PROVIDERS: Emergency Provider Emergency Medicine; PCP Family Medicine; Visit Provider Emergency Medicine
DX: R10.30 Lower abdominal pain, unspecified (principal); F41.9 Anxiety disorder, unspecified; Z87.891 Personal history of nicotine dependence
CPT/HCPCS: 81001; 99282

== ENCOUNTER 2024-01-06 13:29 | Outpatient (RCR) | payer OTHER, SELFPAY | END 2024-01-06 19:00 | disposition home or self-care (01) | LOC: PT 13:29 | PROVIDERS: PCP Family Medicine; Referring Provider Podiatrist Foot & Ankle Surgery; Visit Provider Podiatrist Foot & Ankle Surgery | DX: S96.111D Strain of muscle and tendon of long extensor muscle of toe at ankle and foot level, right foot, subsequent encounter (principal); M79.2 Neuralgia and neuritis, unspecified ==

== ENCOUNTER 2024-02-08 08:00 | Outpatient (RCR) | payer OTHER, SELFPAY ==
--- NOTE | 2024-02-08 10:05 | BH.SGPN.GN ---
Behaviors/Verbalizations/Mental Status: [] Client alert and oriented, casually dressed and groomed. Eye contact good. Motor activity appropriate. Speech within normal limits. Affect congruent, mood euthymic, Thoughts linear, logical, no signs of hallucinations or delusions. Client Response/Progress/Benefit: [] Client's first day in program and responded well to session AEB actively participating throughout group. Client was attentive throughout group activity discussing famous individuals and how they overcame failure to be successful. Client helped group identify how fear of failure can impact mental health and relationships. Client personally identified it leads to lack of self confidence and isolation. Client participated in experiential activity, working with group members to problem solve. Appeared to benefit from increased knowledge of fear of failure. Will continue IOP tx to improve self-confidence, reduce distorted thinking patterns, and increase functioning. Narrative Note: []
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
--- NOTE | 2024-02-08 11:00 | BH.MTP ---
Master Treatment Plan Patient Information Program Physician:: Dr. Laura Johns Primary Therapist:: Janet COX Psychiatric Diagnoses Psychiatric Diagnoses:: Generalized anxiety disorder F41.1; Major depressive disorder, recurrent, severe without psychosis; PTSD; History of anorexia nervosa; History of benzodiazepine dependence Diagnosis Code(s):: F 41.1 Estimated LOS Estimated LOS (in weeks):: 6 Problem/Goal #1 Problem/Goal #1 Stated Goal:: Pt will reduce anxiety, avoidance, and rumination on health issues while increasing ability to function on daily basis Description of Barriers: Pt has GI issues that create a vicious cycle with pt's anxiety as pt's GI issues exacerbate anxiety and anxiety exacerbates GI issues. Pt has tried medications in the past and has not found many helpful. Pt has limited support outside her [id number]. Pt has childhood trauma that could be impacting pt currently. Functional Impact: Pt is a 58-year-old female with a history of PTSD, ONESIMO, and MDD who was referred to [facility] tx by her outpatient therapist and PCP due to worsening symptoms of depression and anxiety impacting pt's ability to function. Pt reports heightened health anxiety triggered back in the spring when pt had another injury to her ankle that triggered health anxiety back in 2011. Pt's anxiety is currently impacting her ability to concentrate at work, causing marital issues, and exacerbating her GI issues. Pt endorses hopelessness, helplessness, panic attacks, muscle clenching, guilt, lack of energy, and weight loss. Goal Relevant Strengths/Supports: Pt has support from her [id number] and she has a flexible job. Pt has outpatient counseling and is receptive to medication. Objectives Objective #1: Stated Objective: Pt will identify 2-3 anxiety triggers and 2 coping skills to use when feeling anxious to manage anxiety as shown by decreasing DSM-5 scores for anxiety. Interventions: Therapist will provide education on anxiety, avoidance behaviors, and maintenance cycles. Therapist will help pt explore personal symptoms and warning signs of anxiety. Therapist will teach pt coping skills to improve emotional regulation, mindfulness, and distress tolerance to help pt cope with anxiety in the moment. Discharge Criteria: Pt will have accomplished this goal when can identify at least 2 triggers and report using 2 coping skills to manage anxiety. Additionally, pt will have accomplished this goal when DSM-5 scores show a reduction for anxiety. Target Date: 03/21/24 Review Date: 02/29/24 Status: open Objective #2: Stated Objective: Pt will reduce avoidance behaviors that reinforce anxiety by setting 1-2 small exposure goals a week to increase socialization, increase mastery, and reduce anxiety over time. Interventions: Through group and individual sessions, pt will learn about the benefits of setting exposure goals to overcome anxiety-producing situations. Therapist will help pt set SMART goals and challenge barriers. Therapist will use cognitive restructuring techniques and help pt gain awareness of negative thoughts that reinforce avoidance behaviors and fear of judgement. Therapist will help pt incorporate mindfulness, opposite action, and self-talk strategies to manage anxiety. Discharge Criteria: Pt will have accomplished this goal when can report accomplishing at least one small exposure goal a week. Additionally, pt will be able to report decreased avoidance behaviors. Target Date: 03/21/24 Review Date: 02/29/24 Status: open Problem/Goal #2 Problem/Goal #2 Stated Goal:: Pt will decrease depressive symptoms, hopelessness, worthlessness, negative self-talk, and hopelessness. Description of Barriers: Pt has GI issues that create a vicious cycle with pt's anxiety as pt's GI issues exacerbate anxiety and anxiety exacerbates GI issues. Pt has tried medications in the past and has not found many helpful. Pt has limited support outside her [id number]. Pt has childhood trauma that could be impacting pt currently. Functional Impact: Pt is a 58-year-old female with a history of PTSD, ONESIMO, and MDD who was referred to [facility] tx by her outpatient therapist and PCP due to worsening symptoms of depression and anxiety impacting pt's ability to function. Pt reports heightened health anxiety triggered back in the spring when pt had another injury to her ankle that triggered health anxiety back in 2011. Pt's anxiety is currently impacting her ability to concentrate at work, causing marital issues, and exacerbating her GI issues. Pt endorses hopelessness, helplessness, panic attacks, muscle clenching, guilt, lack of energy, and weight loss. Goal Relevant Strengths/Supports: Pt has support from her [id number] and she has a flexible job. Pt has outpatient counseling and is receptive to medication. Objectives Objective #1: Stated Objective: Pt will learn and utilize 2-3 healthy coping strategies to better manage depressive symptoms and reduce negative thinking patterns as shown by a decrease of DMS-5 symptoms for depression. Interventions: Through group and individual sessions, therapist will help pt identify triggers and warning signs of depression and guilt including emotional, physical, and behavioral changes. Therapist will teach pt various coping skills to manage symptoms and give pt tangible resources to use to regulate emotions. Therapist will use cognitive restructuring techniques and help pt gain awareness of negative thoughts that reinforce guilt and depression. Therapist will provide psychoeducation on maintenance cycles and help pt learn ways to break unhealthy maintenance cycles. Therapist will help pt incorporate behavioral activation and assist pt in setting SMART goals. Discharge Criteria: Pt will have met this goal when can report learning and using at least 2 coping skills to manage depressive symptoms and reduce negative thinking. Additionally, pt will have met this goal when pt's DSM-5 scores for depression decrease. Target Date: 03/21/24 Review Date: 02/29/24 Status: open Objective #2: Stated Objective: Pt will identify at least 2-3 negative self-talk messages used to reinforce negative core beliefs, worthlessness, and isolation and replace thoughts with balanced, realistic messages. Interventions: Therapist will help pt identify distorted, negative beliefs about self and replace with more realistic, affirmative messages. Therapist will use CBT and DBT to help pt increase insight to the connection between thoughts, emotions, and behaviors. Therapist will encourage pt to practice thought challenging. Discharge Criteria: Pt will have achieved this goal when can verbalize at least 2 cognitive distortions and effectively replace those thoughts with affirmative messages. Target Date: 03/21/24 Review Date: 02/29/24 Status: open
--- NOTE | 2024-02-08 11:01 | BH.COMM_ITS ---
Communication Note Communication with Client Communication Note: Met with pt to complete initial paperwork and administer the CSSR-S screening and risk assessment. Pt is low risk as pt has no history of suicide attempts or any suicidal ideations past or present. Pt denies thoughts of . Pt had history of suicidal thoughts for four days years ago, but this was due to a medication side effect and the thoughts stopped when she stopped the medication. Pt has no access to weapons. Pt a Discussed case with Dr. Johns and pt will be admitted to [facility] tx with a diagnosis of MDD, recurrent, severe, without psychosis F 33.2.
--- NOTE | 2024-02-08 11:10 | BH.SGPN.GN ---
Behaviors/Verbalizations/Mental Status: [] Client alert and oriented, casually dressed and groomed. Eye contact good. Motor activity appropriate. Speech within normal limits. Affect congruent, mood euthymic. Thoughts linear, logical, no signs of hallucinations or delusions. Client Response/Progress/Benefit: [] Client 1st day in program and responded well to session, engaged in the experiential activity and attentive throughout group processing. Client reported fear of failure has kept client from trying new things. Client completed fear of failure worksheet and was able to identify thoughts and behaviors that reinforce personal fear of failure including perfectionism and catastrophizing. Client participated in small group discussion regarding strategies to overcome fear of failure. Identified wanting to work on positive self talk, utilizing supports and catching negative thought patterns. Appeared to benefit from increased knowledge of strategies to combat fear of failure and gaining self-awareness. Client will continue IOP tx to increase overall functioning. Narrative Note: []
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
--- NOTE | 2024-02-09 12:51 | BH.DR.ITP ---
Initial Treatment Plan Patient Information Visit Information: ADMISSION DATE: EXPECTED LOS: 4-6 weeks Problems/Symptoms Problem #1:: Anxiety Symptom:: Worry, rumination Symptom:: Avoidance, nightmares, fear of worsening health Problem #2:: Depression Symptom:: Sadness, hopelessness, anhedonia, biological disruption of appetite, guilt, low energy, decreased concentration
--- NOTE | 2024-02-14 09:05 | BH.SGPN.GN ---
Behaviors/Verbalizations/Mental Status: []Eye contact is good. Motor activity is appropriate. Appearance is casual. Speech is Appropriate. Mood is anxious. Affect is flat-tearful. Thoughts are linear and logical. No evidence of psychosis. Reviewed daily check in sheet and no reports of suicidal ideations or intent. Client Response/Progress/Benefit: []Pt responded well to session, attentive and engaged. Pt reports feeling anxious this morning and pt was tearful. Pt shared her anxiety has been significant for months and she does not know how to manage it or reduce it. Pt's mental health win today is that she came to IOP and she is trying a new medication. Pt has tried several medications in the past and pt has a hard time tolerating them so trying new medications also brings pt anxiety. Pt was given encouragement and gentle thought challenging which pt reported she benefitted from this. Pt will continue IOP tx to prevent decompensation, improve daily functioning, and increase distress tolerance skills. Narrative Note: []
--- NOTE | 2024-02-14 10:15 | BH.SGPN.GN ---
Behaviors/Verbalizations/Mental Status: [] Eye contact is fair. Motor activity is appropriate. Appearance is casual. Speech is Appropriate. Mood is anxious. Affect is constricted. Thoughts are linear and logical. No evidence of psychosis. Client Response/Progress/Benefit: [] Pt did well to participate in activity and was engaged and attentive during psychoeducation and interactive discussion on coping skills, why people use unhealthy coping skills, how to replace unhealthy coping skills, and internal vs external coping skills. Attentive as peers came up with list of negative coping skills including not asking for help, avoidance, isolating, sleeping, shopping, substance use, and several others. Group discussed the effects of how negative coping skills can impact mental health in a negative way. Benefited from increased understanding of unhealthy coping skills and the need for developing healthy internal and external coping skills. Will continue in IOP to increase healthy coping skills, challenge distortions, and prevent decompensation.
--- NOTE | 2024-02-14 11:15 | BH.SGPN.GN ---
Behaviors/Verbalizations/Mental Status: []Pt alert and oriented, casually dressed and groomed. Eye contact good. Motor activity appropriate. Speech within normal limits. Affect congruent, mood anxious. Thoughts linear, logical, no signs of hallucinations or delusions. Client Response/Progress/Benefit: [] Pt responded well to session, taking notes and contributing when prompted. Group discussed the different categories of coping skills which included distraction, emotional release, grounding, self-love, and thought challenging. Pt participated in creating a coping skills ?menu? from the five categories of coping skills. Pt's coping skill menu included: changing her environment, hands-on activities, deep breathing, positive affirmations, and reframing. Appeared to benefit from increasing repertoire of healthy coping skills. Will continue IOP to improve mood stability, challenge distortions, and prevent decompensation. Narrative Note: []
--- NOTE | 2024-02-16 09:00 | BH.SGPN.GN ---
Behaviors/Verbalizations/Mental Status: [] Eye contact good. Motor activity appropriate. Speech within normal limits. Affect congruent, mood anxious and depressed. Thoughts linear, logical, no signs of hallucinations or delusions. Reviewed client?s symptom tracker, denies SI, plan, or intent as of 02/16/2024. Client Response/Progress/Benefit: [] Client receptive of session, attentive and willing to process with group. Reports mental health win as advocating for herself by communicating with her a need for going to sleep earlier. Discussed willingness to compromise with him by sleeping in the guest bedroom so he would not have to shirt turner the light earlier. Pt reports an additional win as showing up to group today after having a high anxiety day the day before. Reports struggling to believe she is able to make progress with improving her ability to cope. Pt receptive of and appearing to benefit from group support and encouragement, as well as suggestions for managing sx of anxiety. Stressor identified as ongoing physical health issues. Did well to identify some coping skills for better managing her sx but continues to struggle with significant negative and anxious thoughts surrounding her health. Receptive of and appearing to benefit from group support and feedback. Recommended continued IOP tx to further improve mood stability, promote consistent skill application, well as prevent decompensation. Narrative Note: []
--- NOTE | 2024-02-16 10:15 | BH.SGPN.GN ---
Behaviors/Verbalizations/Mental Status: []Patient was alert and oriented, casually dressed and groomed. Eye contact was good, motor activity normal, speech within normal limits. Affect congruent, mood anxious. Thoughts linear, logical, no signs of hallucinations or delusion Client Response/Progress/Benefit: [] Pt participated in the group discussions AEB nodding and taking notes. Attentive during psychoeducation Goal Setting. Participated during the discussion on common barriers and pt identified some personal barriers as procrastination and lack of motivation. Group also identified benefits of goals as sense of purpose, improved self-confidence, more motivation for other goals, and improved mental health. Benefited from increased awareness of mental health benefits of goals as well as psychoeducation on SMART goal criteria. Will continue in IOP to prevent decompensation, improve daily functioning, and improve distress tolerance skills. ? Narrative Note: []
--- NOTE | 2024-02-16 11:40 | BH.COMM ---
Communication Note Communication with Client Communication Note: This nurse was alerted that client had concerns about her increased anxiety. On discussion with client, client states she talked to her GI office and they told her that her Xifaxan for her IBS would not be causing increased anxiety. Client has been taking Remeron for almost a week now and states she thinks that it is helping, but states she has increased anxiety around when she has bowel movements. Client in therapists office during discussion and became tearful when she states she is afraid of her anxiety being too high and being hospitalized again and her not being able to support her through another hospitalization. Client states last night she did not sleep well, and states she has been taking Trazodone 25mg with her Remeron 15mg at night to make sure she gets sleep. Client is questioning whether Bentyl PRN for her abdominal pain would interact with her medications and if she could take up to 50mg of Trazodone at bedtime. This nurse discussed client's symptoms and questions with Dr. Mcbride. Dr. Mcbride states client can take Bentyl for her abdominal pain and also can take up to 50mg of Trazodone at bedtime with Remeron. This was discussed with client. Client denies any further questions at this time.
--- NOTE | 2024-02-16 15:46 | BH.MDN ---
Multi-Disciplinary Note Note 45-min Individual: Time Started:: 11:35 Date: 02/16/24 Purpose of session/treatment goals addressed:: To work on goal #1 of pt's tx plan and to provide emotional support while pt processed current stressors. Eye Contact:: Good Motor Activity:: Restless Appearance:: Casual Speech:: Soft Mood:: Anxious and Depressed Affect:: Congruent (tearful) Thoughts:: Racing and No evidence of hallucinations/delusions noted Staff Interventions:: thought challenging, psychoeducation on: (health anxiety), CBT techniques, rapport building, strengths perspective and other (Began working on health anxiety triggers and behaviors.) Client Response:: Pt responded well to session, open to meeting with therapist. Pt reports feeling overwhelmed and she feels like she cannot concentrate while at IOP. Pt is also unable to concentrate at home and pt feels that she is constantly on edge. Pt expressed that she is worried that her anxiety will not decrease and feels that the medication is not fully helping. Pt receptive to emotional support as well as gentle thought challenging. Pt has been in therapy in the past, so pt reports she knows a lot of skills, but she is currently struggling with regulating her anxiety especially related to her health. Pt receptive to health anxiety discussion and handout provided by therapist. Pt connected with the triggers that were listed as well as the safety behaviors that go with health anxiety. Pt stated she does do body scanning to make sure things look okay and pt also weighs herself. Pt shared she started doing this because she needed to monitor if she was putting on weight to see if her change in diet was helping. However, pt admits that this does reinforce her anxiety because if she does not see a change she ruminates. Discussed the importance of using mindfulness skills, distress tolerance, and opposite action to help reduce anxiety. Pt's homework was to practice grounding skills and to identify other safety behaviors she uses. Risks/Concerns:: Pt denies any suicidal ideations or thoughts of . Progress Toward Goals/Plan:: Limited progress noted. Pt reports her anxiety is worsening and she feels that she is not yet benefitting from medication. Pt also reports difficulty with applying some of the skills as pt has physical health issues that she experiences, so it is hard for pt to challenge her health anxiety. Pt was receptive to learning more about safety behaviors and triggers for anxiety/health anxiety. Pt will continue IOP tx to prevent decompensation, improve daily functioning, and increase healthy coping skills. Time Stopped:: 12:15
--- NOTE | 2024-02-18 12:07 | BH.MDN ---
Multi-Disciplinary Note Note 45-min Individual: Time Started:: 10:40 Date: 02/18/24 Purpose of session/treatment goals addressed:: To provide emotional support and help pt regulate anxiety. Eye Contact:: Good Motor Activity:: Appropriate Appearance:: Casual Speech:: Soft Mood:: Anxious and Depressed Affect:: Constricted Thoughts:: Racing and No evidence of hallucinations/delusions noted Staff Interventions:: thought challenging, CBT techniques, mindfulness skills, strengths perspective and taught coping skills Client Response:: Pt responded well to session, open to meeting with therapist, but visibly distressed. Pt is highly anxious this morning and reports that she is worried she will lose her marriage and not get better. Pt has expressed worry about her marriage previously, sharing she gets limited emotional support from her . Pt stated they have tried marriage counseling, and he expressed being all in but pt worries that if she does not get her mental health under control he will leave pt. Pt feels like when she is at home she has to pretend that she is better, so she is constantly pretending and masking her emotions. Pt does not feel that she can express this concern to her without fear of repercussions. Pt receptive to discussion on supports and how they can provide different types of support. Pt understands that her can be a support in different ways and pt has the right to tell him about the ways she would like support. Pt has an appointment next week and she reports plan to ask her to drive her which will reduce some of pt's anxiety. Also talked about the pros and cons of being honest with her emotions to her . Pt's homework is to continue to practice grounding skills and ask her to take her to her appointment. Risks/Concerns:: Pt denies any active SI, plan, or intent as of 02/18/24. Progress Toward Goals/Plan:: No significant changes since session on 02/16/24. Pt's anxiety continues to be severe and impacting pt from fully engaging. Pt reports her inability to function at her baseline as well as her martial stress are significant stressors. Pt is anxious about the effectiveness of her medications and pt will see Dr. Johns again next week. Pt will continue IOP tx to prevent decompensation, improve daily functioning, and increase healthy coping skills. Time Stopped:: 11:20
--- NOTE | 2024-02-22 14:39 | BH.DS_ITS ---
Discharge Summary Demographics Date of Admission:: 02/08/24 Discharge Date: 02/22/24 Presenting Problems at Admission:: Pt is a 58-year-old female with a history of PTSD, ONESIMO, and MDD who was referred to [facility] tx by her outpatient therapist and PCP due to worsening symptoms of depression and anxiety impacting pt's ability to function. Pt reports heightened health anxiety triggered back in the spring when pt had another injury to her ankle that triggered health anxiety back in 2011. Pt's anxiety is currently impacting her ability to concentrate at work, causing marital issues, and exacerbating her GI issues. Pt endorses hopelessness, helplessness, panic attacks, muscle clenching, guilt, lack of energy, and weight loss. Discharge Diagnoses:: Generalized anxiety disorder F41.1; Major depressive disorder, recurrent, severe without psychosis; PTSD; History of anorexia nervosa; History of benzodiazepine dependence Reason for Discharge:: Pt voluntarily admitted self to [facility] to get her medications re-evaluated and adjusted as pt felt her anxiety was worsening. Treatment Progress During Treatment & Response: Pt attended [facility] tx for one week, so there is no progress to document. Pt shared over the phone that she thought the program was good but I wasn't in the right state of mind. Pt was highly anxious during her first week and struggled to make it through all the groups due to anxiety. Issues Still to be Addressed:: All issues that pt endorsed at admission still need addressed. Discharge Recommendations/Instructions:: Pt will be encouraged to follow the instructions of the discharge planners through [facility]. Pt was reminded that she can return to [facility] after her admission if she chooses. Pt will also follow up with her outpatient psychiatric and counseling providers. Discharge Handout
== END 2024-02-22 13:52 ==
LOC: BHIOP 08:00
PROVIDERS: PCP Family Medicine; Referring Provider Psychiatry & Neurology Psychiatry; Visit Provider Psychiatry & Neurology Psychiatry
DX: F41.1 Generalized anxiety disorder (principal); F33.2 Major depressive disorder, recurrent severe without psychotic features; F43.10 Post-traumatic stress disorder, unspecified; F50.00 Anorexia nervosa, unspecified; F13.21 Sedative, hypnotic or anxiolytic dependence, in remission
CPT/HCPCS: S9480; 90834; 90837; 90853

== ENCOUNTER → 2024-05-24 | Outpatient (CLI) | payer OTHER, SELFPAY ==
[2024-05-24 18:10] LABS: ALB/GLOB Ratio 1.2 RATIO (0.9-2.4); AST(SGOT) 15 U/L (15-37); Alanine Aminotransfer ALT/SGPT 29 U/L (13-56); Albumin, Serum 3.7 g/dL (3.2-5.0); Alkaline Phosphatase 107 U/L (45-117); Anion Gap 5 (5-15); BUN 24 mg/dL (7-18); BUN/Creat Ratio 33.2 RATIO (10-20); Calcium,Total 8.9 mg/dL (8.5-10.1); Chloride 100 mmol/L (98-107); Creatinine, Serum 0.72 mg/dL (0.55-1.02); EST Glomerular Filtration Rate 88 mL/min (>60); Est Glom Filt Rate - Afr Amer 107 mL/min (>60); Globulin 3.2 g/dL (2.2-4.2); Glucose 94 mg/dL (74-106); Phosphorus 4.5 mg/dL (2.5-4.9); Potassium 3.9 mmol/L (3.5-5.1); Protein, Total 6.9 g/dL (6.4-8.2); Sodium Level 136 mmol/L (136-145)
== END | disposition home or self-care (01) ==
LOC: MFPLAB 14:35
PROVIDERS: PCP Family Medicine
DX: F50.82 Avoidant/restrictive food intake disorder (principal)
CPT/HCPCS: 36415; 80053; 84100

== ENCOUNTER → 2024-06-12 | Outpatient (CLI) | payer OTHER, SELFPAY ==
[2024-06-12 17:48] LABS: ALB/GLOB Ratio 1.2 RATIO (0.9-2.4); AST(SGOT) 19 U/L (15-37); Alanine Aminotransfer ALT/SGPT 30 U/L (13-56); Albumin, Serum 3.7 g/dL (3.2-5.0); Alkaline Phosphatase 101 U/L (45-117); Anion Gap 5 (5-15); BUN 20 mg/dL (7-18); BUN/Creat Ratio 28.7 RATIO (10-20); Calcium,Total 8.9 mg/dL (8.5-10.1); Chloride 103 mmol/L (98-107); EST Glomerular Filtration Rate 92 mL/min (>60); Est Glom Filt Rate - Afr Amer 111 mL/min (>60); Glucose 90 mg/dL (74-106); Protein, Total 6.7 g/dL (6.4-8.2); Sodium Level 136 mmol/L (136-145)
== END | disposition home or self-care (01) ==
LOC: MFPLAB 15:32
PROVIDERS: PCP Family Medicine; Referring Provider Family Medicine; Visit Provider Family Medicine
DX: R53.83 Other fatigue (principal)
CPT/HCPCS: 36415; 80053; 84100

== ENCOUNTER → 2024-07-05 | Outpatient (CLI) | payer OTHER, SELFPAY ==
[2024-07-05 15:08] LABS: Absolute Lymphocyte Count 1.34 X10^3/uL (0.83-4.51); Absolute Neutrophil Count 3.9 X10^3/uL (2.0-7.7); Basophil# 0.03 X10^3/uL; Basophil% 0.5 % (0-1); Eosinophil# 0.01 X10^3/uL; Eosinophils% 0.2 % (0-5); Hematocrit 35.8 % (37-47); Hemoglobin 11.9 g/dL (12.0-15.0); Lymphocyte # 1.34 X10^3/ul (0.83-4.51); Lymphocyte % 23.7 % (19-41); Mean Corp Hgb Conc 33.2 g/dL (32-36); Mean Corpuscular Hgb 30.8 pg (27.0-32.0); Mean Corpuscular Volume 92.7 fL (81-99); Mean Platelet Vol. 10.3 fl (6.2-12.0); Monocyte# 0.41 X10^3/uL; Monocyte% 7.2 % (0-10); NRBC Flagged by Analyzer 0 % (0-5); Neutrophil # 3.86 X10^3/uL (2.7-7.7); Neutrophil % 68.2 % (47-70); Platelet Count 194 K/mm3 (150-450); RBC Distribution Width CV 11.6 % (11.6-14.6); RBC Distribution Width SD 39.7 fl (35.1-43.9); Red Blood Count 3.86 M/mm3 (4.2-5.4); White Blood Count 5.7 K/mm3 (4.4-11.0)
[2024-07-05 15:48] LABS: Anion Gap 6 (5-15); BUN 14 mg/dL (7-18); BUN/Creat Ratio 19.3 RATIO (10-20); Calcium,Total 9.3 mg/dL (8.5-10.1); Chloride 101 mmol/L (98-107); Creatinine, Serum 0.73 mg/dL (0.55-1.02); EST Glomerular Filtration Rate 88 mL/min (>60); Est Glom Filt Rate - Afr Amer 106 mL/min (>60); Glucose 96 mg/dL (74-106); Magnesium 2.1 mg/dL (1.6-2.6); Potassium 4.1 mmol/L (3.5-5.1); Sodium Level 135 mmol/L (136-145)
[2024-07-07 05:07] LABS: Prealbumin 24 mg/dL (10-36)
== END | disposition home or self-care (01) ==
LOC: MTLAB 11:40
PROVIDERS: PCP Family Medicine; Referring Provider Family Medicine; Visit Provider Family Medicine
DX: F50.9 Eating disorder, unspecified (principal)
CPT/HCPCS: 36415; 80048; 83735; 84134; 85025

== ENCOUNTER → 2025-03-15 | Outpatient (CLI) | payer OTHER, SELFPAY ==
[2025-03-15 12:34] LABS: Hematocrit 34.3 % (37-47); Hemoglobin 11.8 g/dL (12.0-15.0); Immature Granulocytes Count 0.010 X10^3/uL (0.0-0.0); Mean Corp Hgb Conc 34.4 g/dL (32-36); Mean Corpuscular Volume 94.2 fL (81-99); Mean Platelet Vol. 10.3 fl (6.2-12.0); NRBC Flagged by Analyzer 0 % (0-5); Platelet Count 187 K/mm3 (150-450); RBC Distribution Width CV 11.9 % (11.6-14.6); RBC Distribution Width SD 41.4 fl (35.1-43.9); Red Blood Count 3.64 M/mm3 (4.2-5.4); White Blood Count 4.3 K/mm3 (4.4-11.0)
[2025-03-15 13:06] LABS: AST(SGOT) 21 U/L (<=31); Alanine Aminotransfer ALT/SGPT 21 U/L (<=34); Albumin, Serum 4.5 g/dL (3.5-5.0); Alkaline Phosphatase 82 U/L (35-104); Anion Gap 11 (5-15); BUN 14 mg/dL (4-19); BUN/Creat Ratio 21.4 RATIO (10-20); Calcium,Total 9.3 mg/dL (7.6-11.0); Carbon Dioxide 26.3 mmol/L (21.0-32.0); Chloride 100 mmol/L (98-108); Free T3 2.5 pg/mL (2.18-3.98); Globulin 2.1 g/dL (2.2-4.2); Glucose 84 mg/dL (70-99); Potassium 4.2 mmol/L (3.3-5.1)
[2025-03-16 08:09] LABS: Prealbumin 25 mg/dL (10-36)
== END | disposition home or self-care (01) ==
LOC: MFPLAB 10:34
PROVIDERS: PCP Family Medicine; Visit Provider Family Medicine
DX: L65.9 Nonscarring hair loss, unspecified (principal); K21.9 Gastro-esophageal reflux disease without esophagitis
CPT/HCPCS: 36415; 80053; 84134; 84439; 84443; 84481; 85025